=== PATIENT | female | born 1950 | race Hispanic/Latino ===

== ENCOUNTER 2020-01-05 09:48 | Observation (INO) | payer OTHER ==
[2019-12-30 14:11] LABS: Basophils % 1.3 % (0-1.3); Hematocrit 42.4 % (36.0-45.0); Lymphocytes % 37.8 % (15.3-44.8); MPV 9.9 fL (7.6-11.3); RBC Red Blood Cell Count 4.75 M/uL (3.86-4.86)
[~2020-01-05 09:48] MED LIST: CEFOXITIN/SWI 1gm 1 GM/10 ML SYR IVP SCH
[2020-01-05] MEDS ORDERED: Ringers Lactate 1,000 ML IV ONE ×2 (10:19→12:41)
[2020-01-05] MEDS: CEFOXITIN/SWI 1gm 1 GM/10 ML SYR ONE ×2 (10:39→11:45)
[2020-01-05] MEDS: BUPIVACAINE 0.5% Inj,MDV 50 mL VIAL ONE ×2 (10:49→12:00)
[2020-01-05] MEDS ORDERED: LIDOCAINE 2% MPF 5 ML VIAL ONE ×2 (10:50→11:02)
[2020-01-05] MEDS ORDERED: dexAMETHasone 10 MG/ML VIAL ONE ×2 (10:50→11:02)
[2020-01-05] MEDS ORDERED: ROCURONIUM 50 MG/5 ML VIAL IV ONE ×3 (10:50→11:02)
[2020-01-05] MEDS ORDERED: FENTANYL CITR 100 MCG/2 ML ONE ×2 (10:50→11:01)
[2020-01-05] MEDS ORDERED: propofoL 200 MG/20 ML VIAL IV ONE ×2 (10:50→11:01)
[2020-01-05] MEDS ORDERED: ONDANSETRON 4 MG/2 ML VIAL ONE ×3 (10:53→13:34)
--- OUTSIDE RECORDS SUMMARY | 2020-01-05 10:59 | XMS REPORT | Continuity of Care Document ---
:1950 Author Organization [facility] t Address [address] [place] [address] Care Team Providers Name Role Phone Nathaniel SCHMIDT, A Attending Clinician Problems This patient has no known problems. Allergies, Adverse Reactions, Alerts This patient has no known allergies or adverse reactions. Medications This patient has no known medications. Procedures This patient has no known procedures. Encounters Start End Encounter Admission Attending Care Care Encounter Source Date/Time Date/Time Type Type Clinicians Facility Department ID 2019-12-22 2019-12-22 Office OLIVIER Armstrong [id number] 14:29:04 15:05:25 Visit Krysta Howard [id number] [place] [id number] [place] [id number] [address] Results This patient has no known results.
--- OUTSIDE RECORDS SUMMARY | 2020-01-05 10:59 | XMS REPORT | Summary of Care ---
:1950 Author Organization [facility] Address [address] [place] [address] Care Team Providers Name Role Phone José Armstrong MD Primary Care Provider Reason for Visit Reason Comments Refill Request Encounter Details Date Type Department Care Team Description 11/12/2019 Refill [facility] and Ed[place]ancek Luis singh MD Refill Request Adult Primary Care- [address] [facility] [address] [place] [address] [address] [place] [address] [phone] Allergies No Known Allergiesdocumented as of this encounter (statuses as of 11/13/2019) Medications Medication Sig Dispensed Refills Start Date End Date Status albuterol 2.5 mg /3 Inhale 3 mL 120 Vial 11 01/09/2018 Active mL (0.083 %) every 6 (six) nebulizer hours as solutionIndications: needed for Shortness of breath Wheezing or Shortness of Breath. albuterol 90 Inhale 2 Puffs 8.5 g 11 01/09/2018 A ctive mcg/actuation every 6 (six) inhalerIndications: hours as Shortness of breath needed for Wheezing or Shortness of Breath. ibuprofen 600 mg Take 1 tablet 30 tablet 0 10/04/2018 Active tabletIndications: by mouth every Pelvic organ 6 (six) hours prolapse as needed for quantification stage Pain (scale 2 cystocele 4-6). traMADol 50 mg Take 1 tablet 20 tablet 0 10/04/2018 Active tabletIndications: by mouth every Pelvic organ 6 (six) hours prolapse as needed for quantification stage Pain (scale 2 cystocele 7-10). omeprazole 20 mg TAKE 1 CAPSULE 30 capsule 5 11/15/2018 Active capsule BY MOUTH ONCE DAILY lisinopril 20 mg Take 1 tablet 90 tablet 3 08/15/2019 Active tabletIndications: by mouth Uncontrolled daily. hypertension amLODIPine 10 mg Take 1 tablet 90 tablet 3 08/15/2019 Active tabletIndications: by mouth Uncontrolled daily. hypertension doxycycline hyclate Take 1 tablet 20 tablet 0 09/30/2019 Active 100 mg by mouth 2 tabletIndications: (two) times Cellulitis of right daily. lower extremity FUROSEMIDE 20 mg Take 1 tablet 30 tablet 0 11/13/2019 Active tabletIndications: by mouth once Edema, lower daily extremity METHIMAZOLE 10 mg TAKE 1 TABLET 90 tablet 0 11/13/2019 Active tabletIndications: BY MOUTH THREE Hyperthyroidism TIMES DAILY METHIMAZOLE 10 mg TAKE 1 TABLET 90 tablet 0 09/05/2019 02 Discontinued tabletIndications: BY MOUTH THREE 0 Hyperthyroidism TIMES DAILY furosemide 20 mg Take 1 tablet 30 tablet 0 09/30/2019 11/13/19 2 Discontinued tabletIndications: by mouth 0 Edema, lower daily. extremity documented as of this encounter (statuses as of 11/13/2019) Active Problems Problem Noted Date Cellulitis of right lower extremity 08/15/2019 Edema, lower extremity 08/15/2019 S/P hysterectomy 10/02/2018 Mixed stress and urge urinary incontinence 08/22/2018 Overview: Added automatically from request for ruth joel [id number] Uterovaginal prolapse, complete 08/22/2018 Overview: Added automatically from request for ruth wisam [id number] Helicobacter pylori (H. pylori) infection 07/25/2018 Obesity (BMI 30-39.9) 07/17/2018 Atrophy of vagina 06/27/2018 Mammogram abnormal 06/27/2018 Overview: Cat 3 Calculus of gallbladder without cholecystitis without obstruction 03/21/2018 Diverticulosis of large intestine without hemorrhage 0 03/21/2018 Family history of stomach cancer 03/21/2018 Colon cancer screening 03/21/2018 Overview: Added automatically from request for ruth joel [id number] Pelvic organ prolapse quantification stage 3 rectocele 01/16/2018 Pelvic organ prolapse quantification stage 2 cystocele 01/16/2018 Thyroid nodule Stroke Overview: due to stress per pt, had at 34 years ol d Recurrent UTI Overview: prolapsed bladder Hypothyroidism (acquired) Uncontrolled hypertension Hearing loss GERD (gastroesophageal reflux disease) documented as of this encounter (statuses as of 11/13/2019) Immunizations Name Administration Dates Next Due Pneumococcal 13 Conjugate, PCV13 (Prevnar 13) 01/09/2018 documented as of this encounter Social History Tobacco Use Types Packs/Day Years Used Date Former Smoker Cigarettes Quit: 2008 Smokeless Tobacco: Never Used Comments: vapes- contains no nicotine (o nly every once & a while) Alcohol Use Drinks/Week oz/Week Comments No Sex Assigned at Date Recorded Not on file documented as of this encounter Last Filed Vital Signs Not on filedocumented in this encounter Plan of Treatment Health Maintenance Due Date Last Done Comments DTaP,Tdap,and Td Vaccines (1 - Tdap) 12/20/1971 COLON CANCER SCREENING ANNUAL FIT/FOBT 2002 COLON CANCER SCREENING FIT DNA EVERY 3 YEARS 2002 COLON CANCER SCREENING SIGMOIDOSCOPY EVERY 5 YEARS 2002 Zoster Recombinant Vaccine (SHINGRIX) (1 of 2) 2002 Medicare Wellness Visit 2017 Osteoporosis Screening 2017 PNEUMOCOCCAL VACCINES 65+ (2 of 2 - PPSV23) 01/09/201906/2017 Breast Cancer Screening (MAMMOGRAM) 01/10/2019 01/10/2018 INFLUENZA VACCINE (#1) 2019 Depression Screening 08/14/2020 08/15/2019 COLONOSCOPY 04/30/2028 04/30/2018 Colorectal Cancer Screening 04/30/2028 HEPATITIS C (HCV) SCREEN Completed 01/21/2018 LUNG CANCER SCREEN: Recommended for age 55-80 with Discontinued 08/02/2018 30 + pack year history documented as of this encounter Implants Implanted Type Area Network Liaison Device Shelf Model / Identifier Expiration Serial / Date Lot Prolene Soft Polypropylene Mesh, Nonabso rbable Synthetic Surgical Mesh [id number] - Ssplmi MESH N/A: Ethicon 04/05/2023 SPMLI / Implanted: Qty: 1 on 10/02/2018 by Riley Manriquez MD at [facility] SPLMI / [id number] documented as of this encounter Results Not on filedocumented in this encounter Visit Diagnoses Diagnosis Edema, lower extremity Hyperthyroidism Thyrotoxicosis without mention of goiter or other cause, without mention of thyrotoxic crisis or storm documented in this encounter Additional Health Concerns Infection Onset Date Last Indicated Resolved Time Contact - ESBL 09/15/2018 09/15/2018 documented as of this encounter Insurance Payer Benefit Plan / Subscriber ID Effective Phone Address T e Group Dates [facility] [id number] 2018-[facility] - HEALTHCARE ent Adv HM O MANAGED DUAL COMPLETE MEDICARE [facility]MO [facility] MEDICAID OF [id number] 2017-Pre [phone] [place] ca[address] [place] [phone] [place] [address] documented as of this encounter
[2020-01-05] MEDS ORDERED: MIDAZOLAM HCL 2 MG/2 ML INJ ONE ×2 (11:00→11:06)
--- OUTSIDE RECORDS SUMMARY | 2020-01-05 11:00 | XMS REPORT | Summary of Care ---
:1950 Author Organization [facility] Address [address] [place] [address] Care Team Providers Name Role Phone José Armstrong MD Primary Care Provider Reason for Visit Reason Comments Assessment Encounter Details Date Type Department Care Team Description 12/22/2019 Telephone [facility] Pediatric and Sarah Armstrong, Assessment Adult Primary Care- [address] [place] [address] [address] [place] [address] [place] [address] [phone] Allergies No Known Allergiesdocumented as of this encounter (statuses as of 12/22/2019) Medications Medication Sig Dispensed Refills Start Date End Date Status albuterol 2.5 mg /3 mL Inhale 3 mL 120 Vial 11 01/09/2018 Active (0.083 %) nebulizer every 6 (six) solutionIndications: hours as needed Shortness of breath for Wheezing or Shortness of Breath. albuterol 90 Inhale 2 Puffs 8.5 g 11 01/09/2018 A ctive mcg/actuation every 6 (six) inhalerIndications: hours as needed Shortness of breath for Wheezing or Shortness of Breath. ibuprofen 600 mg Take 1 tablet by 30 tablet 0 10/04/2018 Active tabletIndications: mouth every 6 Pelvic organ prolapse (six) hours as quantification stage 2 needed for Pain cystocele (scale 4-6). traMADol 50 mg Take 1 tablet by 20 tablet 0 10/04/2018 Active tabletIndications: mouth every 6 Pelvic organ prolapse (six) hours as quantification stage 2 needed for Pain cystocele (scale 7-10). omeprazole 20 mg TAKE 1 CAPSULE 30 capsule 5 11/15/2018 Active capsule BY MOUTH ONCE DAILY lisinopril 20 mg Take 1 tablet by 90 tablet 3 08/15/2019 Active tabletIndications: mouth daily. Uncontrolled hypertension amLODIPine 10 mg Take 1 tablet by 90 tablet 3 08/15/2019 Active tabletIndications: mouth daily. Uncontrolled hypertension doxycycline hyclate 100 Take 1 tablet by 20 tablet 0 0 Active mg tabletIndications: mouth 2 (two) Cellulitis of right times daily. lower extremity FUROSEMIDE 20 mg Take 1 tablet by 30 tablet 0 11/13/2019 Active tabletIndications: mouth once daily Edema, lower extremity METHIMAZOLE 10 mg TAKE 1 TABLET BY 90 tablet 0 11/13/2019 Active tabletIndications: MOUTH THREE Hyperthyroidism TIMES DAILY acetaminophen-codeine Take 1 tablet by 30 tablet 0 12/18/2019 Active (TYLENOL-CODEINE #3) mouth every 4 300-30 mg (four) hours as tabletIndications: needed for Pain acute pain (scale 1-3). Indications: acute pain documented as of this encounter (statuses as of 12/22/2019) Active Problems Problem Noted Date Cellulitis of right lower extremity 08/15/2019 Edema, lower extremity 08/15/2019 S/P hysterectomy 10/02/2018 Mixed stress and urge urinary incontinence 08/22/2018 Overview: Added automatically from request for ruth wisam [id number] Uterovaginal prolapse, complete 08/22/2018 Overview: Added automatically from request for ruth wisam [id number] Helicobacter pylori (H. pylori) infection 07/25/2018 Obesity (BMI 30-39.9) 07/17/2018 Atrophy of vagina 06/27/2018 Mammogram abnormal 06/27/2018 Overview: Cat 3 Calculus of gallbladder without cholecystitis without obstruction 03/21/2018 Diverticulosis of large intestine without hemorrhage 0 03/21/2018 Family history of stomach cancer 03/21/2018 Colon cancer screening 03/21/2018 Overview: Added automatically from request for ruth joel [id number] Pelvic organ prolapse quantification stage 3 rectocele 01/16/2018 Pelvic organ prolapse quantification stage 2 cystocele 01/16/2018 Thyroid nodule Stroke Overview: due to stress per pt, had at 34 years ol d Recurrent UTI Overview: prolapsed bladder Hypothyroidism (acquired) Uncontrolled hypertension Hearing loss GERD (gastroesophageal reflux disease) documented as of this encounter (statuses as of 12/22/2019) Immunizations Name Administration Dates Next Due Pneumococcal 13 Conjugate, PCV13 (Prevnar 13) 01/09/2018 documented as of this encounter Social History Tobacco Use Types Packs/Day Years Used Date Former Smoker Cigarettes Quit: 2008 Smokeless Tobacco: Never Used Comments: vapes- contains no nicotine (o nly every once & a while) Alcohol Use Drinks/Week oz/Week Comments No Sex Assigned at Date Recorded Not on file COVID-19 Exposure Response Date Recorded In the last month, have you been in contact with Yes 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 documented as of this encounter Last Filed Vital Signs Not on filedocumented in this encounter Miscellaneous Notes Telephone Encounter - Kelly Hylton RN - 12/22/2019 11:04 AM CSTPatient scheduled for appointment today. elephone Encounter - Meri Valdivia - 12/22/2019 9:57 AM CSTPatient states she was in the emerg room for a gall stone and would like to see her doctor. Patient states she don't know the next step but need help to figure out what she has to do. Please advise documented in this encounter Plan of Treatment Date Type Specialty Care Team Description 12/22/2019 Office Visit Internal Medicine Jenniffer Armstrong MD [address] [place] [address] [phone] Health Maintenance Due Date Last Done Comments DTaP,Tdap,and Td Vaccines (1 - Tdap) 12/20/1971 COLON CANCER SCREENING ANNUAL FIT/FOBT 2002 COLON CANCER SCREENING FIT DNA EVERY 3 YEARS 2002 COLON CANCER SCREENING SIGMOIDOSCOPY EVERY 5 YEARS 2002 Zoster Recombinant Vaccine (SHINGRIX) (1 of 2) 2002 Medicare Wellness Visit 2017 Osteoporosis Screening 2017 PNEUMOCOCCAL VACCINES 65+ (2 of 2 - PPSV23) 01/09/2019 12/0 06/2017 Breast Cancer Screening (MAMMOGRAM) 01/10/2019 01/10/2018 INFLUENZA VACCINE (#1) 2019 Depression Screening 08/14/2020 08/15/2019 COLONOSCOPY 04/30/2028 04/30/2018 Colorectal Cancer Screening 04/30/2028 HEPATITIS C (HCV) SCREEN Completed 01/21/2018 LUNG CANCER SCREEN: Recommended for age 55-80 with Discontinued 08/02/2018 30 + pack year history documented as of this encounter Implants Implanted Type Area Hydrogen Treater Device Shelf Model / Identifier Expiration Serial / Date Lot Prolene Soft Polypropylene Mesh, Nonabso rbable Synthetic Surgical Mesh [id number] - Ssplmi MESH N/A: Ethicon 04/05/2023 SPMLI / Implanted: Qty: 1 on 10/02/2018 by Riley Manriquez MD at [facility] SPLMI / [id number] documented as of this encounter Results Not on filedocumented in this encounter Insurance Payer Benefit Plan / Subscriber ID Effective Phone Address T e Group Dates [facility] [id number] 2018-Pres [facility] - HEALTHCARE ent Adv HM O MANAGED DUAL COMPLETE MEDICARE HMO [facility] [place] MEDICAID OF [id number] 2017-Pre [phone] Medi caid [place] sent [phone] [place] [address] documented as of this encounter
--- OUTSIDE RECORDS SUMMARY | 2020-01-05 11:00 | XMS REPORT | Summary of Care ---
:1950 Author Organization [facility] - Health Address [address] [place], [place] [id number] Care Team Providers Name Role Phone José Armstrong MD Primary Care Provider Reason for Referral (Routine) Status Reason Specialty Diagnoses / Referred By Contact Refe rred To Procedures Contact New Request RUTH-SURGERY Diagnoses Epigastric pain Briseyda Maxwell, Procedures Discharge Follow-Up: Specialty Service RUTH-SURGERY; 1 Week DO [address] [place], [place] [address] Phone: MRI/CAT Scan (STAT) Status Reason Specialty Diagnoses / Referred By Referred To Procedures Contact Contact New Request Diagnostic Diagnoses Epigastric pain Briseyda Maxwell Radiology Procedures CT ABDOMEN PELVIS W CONTRAST J, DO [address] [place] [phone] Radiology Services (STAT) Status Reason Specialty Diagnoses / Referred By Referred To Procedures Contact Contact New Request Diagnostic Diagnoses Epigastric pain Briseyda Maxwell Radiology Procedures US GALL BLADDER US ABDOMEN COMPLETE J, DO [address] [place] [address] Reason for Visit Reason Comments Shortness of Breath Abdominal Pain Encounter Details Date Type Department Care Team Description 12/17/2019 - Emergency ADC-Emergency Briseyda Maxwell, Epigast tomeka pain (Primary Dx); 12/18/2019 Department DO Biliary colic [address] [place] [id number] [place], [place] [id number] [phone] Allergies No Known Allergiesdocumented as of this encounter (statuses as of 12/18/2019) Medications Medication Sig Dispensed Refills Start Date [...] as of this encounter (statuses as of 12/18/2019) Active Problems Problem Noted Date Cellulitis of right lower extremity 08/15/2019 Edema, lower extremity 08/15/2019 S/P hysterectomy 10/02/2018 Mixed stress and urge urinary incontinence 08/22/2018 Overview: Added automatically from request for ruth joel [id number] Uterovaginal prolapse, complete 08/22/2018 Overview: Added automatically from request for ruth joel [id number] Helicobacter pylori (H. pylori) infection 07/25/2018 Obesity (BMI 30-39.9) 07/17/2018 Atrophy of vagina 06/27/2018 Mammogram abnormal 06/27/2018 Overview: Cat 3 Calculus of gallbladder without cholecystitis without obstruction 03/21/2018 Diverticulosis of large intestine without hemorrhage 0 03/21/2018 Family history of stomach cancer 03/21/2018 Colon cancer screening 03/21/2018 Overview: Added automatically from request for ruth joel [id number] Pelvic organ prolapse quantification stage 3 rectocele 01/16/2018 Pelvic organ prolapse quantification stage 2 cystocele 01/16/2018 Thyroid nodule Stroke Overview: due to stress per pt, had at 34 years ol d Recurrent UTI Overview: prolapsed bladder Hypothyroidism (acquired) Uncontrolled hypertension Hearing loss GERD (gastroesophageal reflux disease) documented as of this encounter (statuses as of 12/18/2019) Immunizations Name Administration Dates Next Due Pneumococcal [...] in contact with Yes 12/17/2019 9:25 PM [employer] someone who was confirmed or suspected to have Coronavirus / COVID-19? documented as of this encounter Last Filed Vital Signs Vital Sign Reading Time Taken Comments Blood Pressure 105/62 12/18/2019 12:47 AM [employer] Pulse 66 12/18/2019 12:47 AM [employer] Temperature 35.8 C (96.4 F) 12/17/2019 9:30 PM [employer] Respiratory Rate 18 12/18/2019 12:47 AM [employer] Oxygen Saturation 97% 12/18/2019 12:47 AM [employer] Inhaled Oxygen Concentration - - Weight 113.4 kg (250 lb) 12/17/2019 9:30 PM [employer] Height 170.2 cm (5' 7") 12/17/2019 9:30 PM [employer] Body Mass Index 39.16 12/17/2019 9:30 PM [employer] documented in this encounter Discharge Instructions Briseyda Pleitez DO - 12/18/2019DIAGNOSIS 1. Biliary Colic 2. Abdominal Pain NO LIFE-THREATENING FINDINGS ON TODAY'S EXAM. PROCEDURES IN THE ER TODAY: Blood work Urine test Abdominal Ultrasound CT abdomen/pelvis MEDICATIONS ADMINISTERED IN THE ER TODAY: Morphine Zofran YOUR PRESCRIPTIONS AND [id number] MEDICATION RECOMMENDATIONS: Tylenol with codeine by mouth every 4 hours as needed for pain. SPECIAL CARE INSTRUCTIONS: Please avoid fatty and fried foods. FOLLOW-UP RECOMMENDATIONS: RECOMMEND FOLLOW-UP WITH A PRIMARY CARE PROVIDER OR SPECIALIST IN 2-5 DAYS, ESPECIALLY IF NO IMPROVEMENT IN SYMPTOMS. TO FOLLOW-UP WITHIN THE [facility], TRY THESE OPTIONS (CLINIC APPOINTMENTS AVAILABLE ON [id number] BASIS): 1. SCHEDULE AN APPOINTMENT ONLINE AT WWW[facility] 2. OR CALL THE [facility] ACCESS CENTER AT OR 3. OR CALL YOUR [facility] PHYSICIAN'S OFFICE DIRECTLY IF YOU ARE ALREADY AN ESTABLISHED [facility] PATIENT. OR, YOU MAY FOLLOW-UP WITH A PROVIDER OF YOUR CHOICE, SUCH : 1. A PHYSICIAN OF YOUR CHOICE 2. [facility], . LOCATIONS IN [facility] 3. [facility], [address] [place] [address]; [phone] RETURN TO ER FOR WORSENING OF SYMPTOMS. AttachmentsThe following attachments cannot be sent through Care Everywhere. Gallstones with Biliary Colic (Italian)documented in this encounter ED Notes Beatris Lindsay RN - 12/17/2019 9:26 PM CSTCC: Pt presents to ER via POA with complaints of sudden Abdominal pain and SOB that woke her up at 18:00, she vomited shortly afterward. Pt stated she has been fine all day until this episode. Pt was COVID Positive on 12/04. Pt stated she went to the dentist today and started taking amoxicillin for a bad tooth. PMHx: COPD, HTN, Thyroid dysfunction PSH: Bladder and Colon lift, hysterectomy MEDS: See Hx LMP: Hysterectomy Tetanus: UTD Awake, alert, oriented, resp reg unlabored, skin warm, color appropriate for race, moves all ext without difficulty, Unable to ambulate at this time. Appears in moderate distress [employer] Briseyda Maxwell, - 12/17/2019 9:21 PM CST [facility] Emergency Department Note Patient Name: Beata Azevedo Date of : 1950 68 year old female Treatment Room: [place] [address] Primary Care Physician: Krysta Armstrong Patient Escorted by: Family [5] Mode of Arrival: Personal means [1] EMS Treatment Prior to ED Arrival: REAL ESTATE SPECIALIST treatment: Medication (comment) REAL ESTATE SPECIALIST treatment comments: amoxcillian Travel and Exposure Screening: Symptoms Does patient have any of these symptoms?: (not recorded) Exposure Screening Has patient had contact with someone with a communicable disease in the last month?: (not recorded) Diseases exposed to:: (not recorded) Is Patient ?: (not recorded) Exposure Date: (not recorded) Chief Complaint: Chief Complaint Patient presents with Shortness of Breath Abdominal Pain History of Present Illness: Patient presents for eval for RUQ/epigastric pain that started around 1900 this evening. It woke her up from sleep. She laid down at 1800. Had a grilled cheese around 1500. Also with n/v. No meds for sx. Denies these sx in the past. No dysuria. No diarrhea. No similar sx in family/freinds. Has h/o tubal ligation x 3 in the past. Also has h/o htn and thyroid disease. Here for eval. Past Medical History/Immunizations: Past Medical History: Diagnosis Date DVT (deep venous thrombosis) right leg at 34 years old. GERD (gastroesophageal reflux disease) Hearing loss HTN (hypertension), benign Hypothyroidism (acquired) Recurrent UTI prolapsed bladder Stroke due to stress per pt, had at 34 years old Thyroid nodule Tetanus received in last 5 years: Yes Childhood immunizations: Up-to-date Allergies: No Known Allergies Past Social History: Tobacco Use Former Smoker; Quit 2008; Smoked: Cigarettes. Smokeless Tobacco: Never used smokeless tobacco. Comments: vapes- contains no nicotine (only every once & a while) Alcohol Use No. Drug Use No. Past Surgical History: Past Surgical History: Procedure Laterality Date BREAST BIOPSY Right 07/25/2018 COLONOSCOPY N/A 04/30/2018 Surgeon: Jason Moyer MD; Location: [facility] CYSTOSCOPY N/A 10/02/2018 Surgeon: Riley Manriquez; Location[facility] ESOPHAGOGASTRODUODENOSCOPY N/A 04/30/2018 Surgeon: Jason Moyer MD; Location: [facility] LAPAROSCOPIC ROBOTIC ASSISTED BLADDER SUSPENSION N/A 10/02/2018 Surgeon: Riley Manriquez; Location: [facility] LAPAROSCOPIC ROBOTIC ASSISTED SACROCOLPOPEXY N/A 10/02/2018 Surgeon: Riley Manriquez; Location[facility] LAPAROSCOPIC ROBOTIC ASSISTED SALPINGO-OOPHORECTOMY Bilateral 10/02/2018 Surgeon: Riley Manriquez; Location: [facility] LAPAROSCOPIC ROBOTIC ASSISTED VAGINAL HYSTERECTOMY N/A 10/02/2018 Surgeon: Riley Manriquez; Location: [facility] OTHER Bilateral venous stripping both legs for varicose veins TONSILLECTOMY 37 years old TUBAL LIGATION twice, 1976, 1978. Review of Systems: Review of Systems Constitutional: Negative for chills and fever. Respiratory: Negative for shortness of breath. Cardiovascular: Negative for chest pain. Gastrointestinal: Positive for abdominal pain, nausea and vomiting. Negative for diarrhea. Musculoskeletal: Negative for arthralgias, neck pain and neck stiffness. Skin: Negative for wound. Neurological: Negative for dizziness. Psychiatric/Behavioral: Negative for agitation. Endocrine: Negative for goiter. Physical Exam: ED Triage Vitals [12/17/19 2130] Weight 113.4 kg (250 lb) Actual or estimated Estimated by patient/family report Height 1.702 m (5' 7") BP (!) 145/61 Pulse 73 Resp 20 Temp 35.8 C (96.4 F) Temp source Oral SpO2 99 % Measured on Room air Physical Exam Vitals signs and nursing note reviewed. Constitutional: Appearance: Normal appearance. HENT: Head: Normocephalic and atraumatic. Cardiovascular: Rate and Rhythm: Normal rate. Pulses: Normal pulses. Pulmonary: Effort: Pulmonary effort is normal. No respiratory distress. Abdominal: Palpations: Abdomen is soft. There is no mass. Tenderness: There is abdominal tenderness. There is no rebound. Skin: General: Skin is warm and dry. Neurological: Mental Status: She is alert. Radiology: Hospital Encounter on 12/17/19 US GALL BLADDER Narrative US GALL BLADDER HISTORY: 68 years-old; Female; RUQ pain, concern for acute eliezer COMPARISON: Abdominopelvic CT 02/28/2018 FINDINGS: LIVER: The liver is normal in size and measures 15.4 cm. Normal echotexture, echogenicity, and contour No focal hepatic lesion. Hepatopetal flow within the main portal vein. GALLBLADDER: A large stone is noted in the neck of the gallbladder measuring approximately 3.0 cm with no wall thickening (0.2 cm), gallbladder distention, or pericholecystic fluid. Sonographic Sanderson's sign cannot be reliably assessed due to administration of pain medication. The common bile duct measures 0.5 cm. PANCREAS: Incompletely visualized due to overlying bowel gas. RIGHT KIDNEY: The partially visualized right kidney is unremarkable. Impression Cholelithiasis with no definite sonographic evidence of cholecystitis. This finding is similar to that of previous abdominopelvic CT on February 2018. Preliminary Report Dictated by Resident: Nell Bernabe CT ABDOMEN PELVIS W CONTRAST Narrative CT ABDOMEN PELVIS W CONTRAST HISTORY: 68 years-old; Female; Abd pain, acute, generalized COMPARISON: 02/28/2018 TECHNIQUE AND FINDINGS: Contiguous axial imaging from the level of the lung bases through the pubic symphysis was performed after the uncomplicated administration of 120 cc of intravenous Omnipaque contrast. Coronal and sagittal reconstructions were obtained. Auto mA and/or iterative reconstruction were used to reduce radiation dose. FINDINGS: LOWER THORAX: The lung bases are clear. No cardiomegaly. LIVER: No focal hepatic lesions. Normal contour. GALLBLADDER AND BILIARY TREE: A 3.0 cm stone is noted near the neck of the gallbladder with no wall thickening or pericholecystic fluid collection, unchanged from prior study. SPLEEN: Unremarkable. PANCREAS: No ductal dilation or masses. ADRENAL GLANDS: Right adrenal lesions measuring 1.7 cm in the medial limb and 1.5 cm in the lateral limb, indeterminate and unchanged from prior study. The left adrenal gland is unremarkable. KIDNEYS: Exophytic renal simple cyst measuring 1.3 cm along the posterior superior pole of left kidney. No hydronephrosis, stones, or masses. Homogeneous and symmetrical enhancement. PERITONEUM AND RETROPERITONEUM: No free air or fluid collection. LYMPH NODES: No intra-abdominal or pelvic lymph node enlargement. GI TRACT: No dilation or bowel wall thickening. Appendix is normal (2:96). A few sigmoid diverticula noted with no CT evidence of diverticulitis. PELVIS/BLADDER: Bladder is distended with no wall thickening. The uterus is absent. VESSELS: Unremarkable. BONES AND SOFT TISSUES: No suspicious lytic or sclerotic bony lesions. Lines/Tubes/Devices/Hardware: None Impression No acute abdominopelvic CT findings to account for patient's symptoms. Sigmoid diverticulosis without diverticulitis. Cholelithiasis without CT evidence of cholecystitis. Preliminary Report Dictated by Resident: Nell Bernabe Lab Results (24h): Recent Results (from the past 24 hour(s)) Urinalysis Collection Time: 12/17/19 9:53 PM Result Value Ref Range APPEARANCE Clear Clear COLOR Yellow Yellow PH 8.0 4.8 - 8.0 SP GRAVITY 1.016 1.003 - 1.030 GLU U QUAL Normal Normal BLOOD Negative Negative KETONES Negative Negative PROTEIN Negative Negative UROBILIN 4.0 mg/dL (A) Normal BILIRUBIN Negative Negative NITRITE Negative Negative LEUK ROBERTA Negative Negative RBC/HPF <1 0 - 3 HPF WBC/HPF 1 0 - 5 HPF BACTERIA Negative Negative MUCOUS Slight (A) Negative LPF SQ EPITH 2 HPF CBC with Differential Collection Time: 12/17/19 9:53 PM Result Value Ref Range WBC 11.26 (H) 4.30 - 11.10 10*3/L RBC 4.69 3.93 - 5.25 10*6/L HGB 14.0 11.6 - 15.0 g/dL HCT 41.7 35.7 - 45.2 % MCV 88.9 80.6 - 95.5 fL MCH 29.9 25.9 - 32.8 pg MCHC 33.6 31.6 - 35.1 g/dL RDW-SD 41.4 39.0 - 49.9 fL RDW-CV 12.7 12.0 - 15.5 % PLT 279 166 - 358 10*3/L MPV 11.2 9.5 - 12.9 fL NRBC/100 WBC 0.0 0.0 - 10.0 /100 WBCs NRBC x10^3 <0.01 10*3/L GRAN MAT (NEUT) % 49.3 % IMM GRAN % 1.00 % LYMPH % 41.0 % MONO % 6.3 % EOS % 1.6 % BASO % 0.8 % GRAN MAT x10^3(ANC) 5.55 1.88 - 7.09 10*3/uL IMM GRAN x10^3 0.11 (H) 0.00 - 0.06 10*3/uL LYMPH x10^3 4.62 (H) 1.32 - 3.29 10*3/uL MONO x10^3 0.71 0.33 - 0.92 10*3/uL EOS x10^3 0.18 0.03 - 0.39 10*3/uL BASO x10^3 0.09 (H) 0.01 - 0.07 10*3/uL REACT LYMPHS Rare Basic Metabolic Panel (NA, K, CL, CO2, GLUCOSE, BUN, CREATININE, CA) Collection Time: 12/17/19 9:53 PM Result Value Ref Range NA 139 135 - 145 mmol/L K 3.2 (L) 3.5 - 5.0 mmol/L CL 99 98 - 108 mmol/L CO2 TOTAL 31 23 - 31 mmol/L AGAP 9 2 - 16 BUN 16 7 - 23 mg/dL GLUCOSE 113 (H) 70 - 110 mg/dL CREATININE 0.71 0.50 - 1.04 mg/dL CALCIUM 9.8 8.6 - 10.6 mg/dL eGFR Calculation (Non-) 82.4 mL/min/1.73m2 eGFR Calculation () 99.8 mL/min/1.73m2 Hepatic Function Panel (ALB, T.PRO, BILI T, BU/BC, ALT, AST, ALK PHOS) Collection Time: 12/17/19 9:53 PM Result Value Ref Range TOTAL BILI 0.8 0.1 - 1.1 mg/dL BILI UNCON 0.5 0.1 - 1.1 mg/dL BILI CONJ 0.0 0.0 - 0.3 mg/dL T PROTEIN 7.6 6.3 - 8.2 g/dL ALBUMIN 4.3 3.5 - 5.0 g/dL ALK PHOS 83 34 - 122 U/L ALTv 38 (H) 5 - 35 U/L AST(SGOT) 39 13 - 40 U/L Lipase Serum Collection Time: 12/17/19 9:53 PM Result Value Ref Range LIPASE 161 0 - 220 U/L Troponin I Collection Time: 12/17/19 9:53 PM Result Value Ref Range TROPONIN I <0.012 <=0.034 ng/mL Lactic Acid Whole Blood Collection Time: 12/17/19 9:53 PM Result Value Ref Range LACTIC ACID 1.60 mmol/L EKG: Nsr, no stemi, QTc 445, rate 67 Orders and Treatments: Orders Placed This Encounter Procedures US GALL BLADDER CT ABDOMEN PELVIS W CONTRAST Urinalysis CBC with Differential Basic Metabolic Panel (NA, K, CL, CO2, GLUCOSE, BUN, CREATININE, CA) Hepatic Function Panel (ALB, T.PRO, BILI T, BU/BC, ALT, AST, ALK PHOS) Lipase Serum Troponin I Lactic Acid Whole Blood Lactic Acid Whole Blood Orders Placed This Encounter Medications morpHINE injection 4 mg ondansetron (ZOFRAN (PF)) injection 4 mg iohexol (OMNIPAQUE 350 BULK-150 mL) injection 120 mL acetaminophen-codeine (TYLENOL-CODEINE #3) 300-30 mg tablet ED COURSE patient presents for eval for abdominal pain that started around 1900. Had a grilled cheese [id number]. Also with n/v. No diarrhea. No dysuria. No meds for sx. Has h/o tubal ligation x 3 in the past. No fevers. VSS here in the EC. Abdomen soft with tenderness in RUQ/epigatric area. Concern for GB disease. EKG is unremarkable. Will give pain meds. Will check labs/urine. Will obtain RUQ US. Final dispo pending. 2310 - labs ok. RUQ US shows GB stones but no itis. Patient states she is feeling better. Still with tenderness to RUQ. Will obtain CT a/p. 0030 - CT a/p shows no acute findings. Patient feeling better. Given po challenge and tolerated by mouth without difficulty. Will discharge home in stable condition Will need general surgery f/u. Avoid fried/fatty foods. T3 prn. MDM: Coding Scoring Tools: No data recorded Diagnosis/Impression: ICD-10-CM ICD-9-CM 1. Epigastric pain R10.13 789.06 2. Biliary colic K80.50 574.20 Disposition/Condition: ED Disposition ED Disposition Condition Comment Disch - Home Stable Discharge Medications: Patient's Medications START taking these medications ACETAMINOPHEN-CODEINE (TYLENOL-CODEINE #3) 300-30 MG TABLET Take 1 tablet by mouth every 4 (four) hours as needed for Pain (scale 1-3). Indications: acute pain CONTINUE taking these medications which have NOT CHANGED ALBUTEROL 2.5 MG /3 ML (0.083 %) NEBULIZER SOLUTION Inhale 3 mL every 6 (six) hours as needed for Wheezing or Shortness of Breath. ALBUTEROL 90 MCG/ACTUATION INHALER Inhale 2 Puffs every 6 (six) hours as needed for Wheezing or Shortness of Breath. AMLODIPINE 10 MG TABLET Take 1 tablet by mouth daily. DOXYCYCLINE HYCLATE 100 MG TABLET Take 1 tablet by mouth 2 (two) times daily. FUROSEMIDE 20 MG TABLET Take 1 tablet by mouth once daily IBUPROFEN 600 MG TABLET Take 1 tablet by mouth every 6 (six) hours as needed for Pain (scale 4-6). LISINOPRIL 20 MG TABLET Take 1 tablet by mouth daily. METHIMAZOLE 10 MG TABLET TAKE 1 TABLET BY MOUTH THREE TIMES DAILY OMEPRAZOLE 20 MG CAPSULE TAKE 1 CAPSULE BY MOUTH ONCE DAILY TRAMADOL 50 MG TABLET Take 1 tablet by mouth every 6 (six) hours as needed for Pain (scale 7-10). START taking Modified Medications as Prescribed No medications on file STOP taking these medications No medications on file Follow-up: Contact information for follow-up Krysta Armstrong MD Specialty: IM-GERIATRIC MEDICINE Relationship: PCP - [address] Olson [address] [place] [phone] Electronically signed by: Briseyda Maxwell DO 12/17/2019 9:50 PM [employer] documented in this encounter Miscellaneous Notes ED Nurse Note - Marti De RN - 12/18/2019 12:49 AM [employer] Patient and given discharge instruction, patient verbralized understanding and signature obtained, patient denies any other concerns. Patient taken to care via wheelchair. D Nurse Note - Marti De RN - 12/18/2019 12:29 AM CSTPatient given fluid for PO challenge, will continue to monitor. D Nurse Note - Rhys Willson RN - 12/17/2019 10:50 PM CSTPt son is Ronni Azevedo is waiting outside with family and wishes to be called on disposition - #: [phone] signed by Rhys Willson, RN at 12/17/2019 10:51 PM CSTED Nurse Note - Beatris Lindsay RN - 12/17/2019 10:15 PM CSTPt pass code is "LOVE" documented in this encounter Plan of Treatment Name Type Priority Associated Diagnoses Date/Ti me CT ABDOMEN PELVIS W IMAGING STAT Epigastric pain 12/16 11:40 PM [employer] CONTRAST Name Type Priority Associated Diagnoses Order S chedule EKG-12 LEAD ROUTINE HEART STATION STAT Epigastric pain ONCE for 1 Occurrences ONCE starting 2019 until 0 Lactic Acid Whole LAB Routine Epigastric pain STAT fo r 1 Occurrences Blood starting 2019 Health Maintenance Due Date Last Done Comments DTaP,Tdap,and Td Vaccines (1 - Tdap) 12/20/1971 COLON CANCER SCREENING ANNUAL FIT/FOBT 2002 COLON CANCER SCREENING FIT DNA EVERY 3 YEARS 2002 COLON CANCER SCREENING SIGMOIDOSCOPY EVERY 5 YEARS 2002 Zoster Recombinant Vaccine (SHINGRIX) (1 of 2) 2002 Medicare Wellness Visit 2017 Osteoporosis Screening 2017 PNEUMOCOCCAL VACCINES 65+ (2 of 2 - PPSV23) 01/09/2019 12/06/2017 Breast Cancer Screening (MAMMOGRAM) 01/10/2019 01/10/2018 INFLUENZA VACCINE (#1) 2019 Depression Screening 08/14/2020 08/15/2019 COLONOSCOPY 04/30/2028 04/30/2018 Colorectal Cancer Screening 04/30/2028 HEPATITIS C (HCV) SCREEN Completed 01/21/2018 LUNG CANCER SCREEN: Recommended for age 55-80 with Discontinued 08/02/2018 30 + pack year history documented as of this encounter Implants Implanted Type Area Clean Out Driller Device Shelf Model / Identifier Expiration Serial / Date Lot Prolene Soft Polypropylene Mesh, Nonabso rbable Synthetic Surgical Mesh [id number] - Ssplmi MESH N/A: Ethicon 04/05/2023 SPMLI / Implanted: Qty: 1 on 10/02/2018 by Riley Manriquez MD at [facility] [employer] SPLMI / [id number] documented as of this encounter Procedures Procedure Name Priority Date/Time Associated Diagnosis Comme nts CT ABDOMEN PELVIS W STAT 12/17/2019 11:40 PM [employer] Epigastric pain CONTRAST Procedure Note - [facility], Radia nt Results Inft User - 12/17/2019 11:[address] [employer] [address] ABDOMEN PELVIS W CONTRAST HISTORY: 68 years-old; Femal e; Abd pain, acute, generalized COMPARISON: 02/28/2018 TECHNIQUE AND FINDINGS: Cont iguous axial imaging from the level of the lung bases through the pubic symp hysis was performed after the uncomplicated administration of 120 cc of intravenous Omnipaque contrast. Coronal and sagittal reconstructions wer e obtained. Auto mA and/or iterative reconstruction were used to reduce radiation dose. FINDINGS: LOWER THORAX: The lung bases are clear. No cardiomegaly. LIVER: No focal hepatic lesi ons. Normal contour. GALLBLADDER AND BILIARY TREE : A 3.0 cm stone is noted near the neck of the gallbladder with no wall thi ckening or pericholecystic fluid collection, unchanged from prior study. SPLEEN: Unremarkable. PANCREAS: No ductal dilation or masses. ADRENAL GLANDS: Right adrena l lesions measuring 1.7 cm in the medial limb and 1.5 cm in the lateral li mb, indeterminate and unchanged from prior study. The left adrenal glan d is unremarkable. KIDNEYS: Exophytic renal sim ple cyst measuring 1.3 cm along the posterior superior pole of left kidney . No hydronephrosis, stones, or masses. Homogeneous and symmetrical enhancement. PERITONEUM AND RETROPERITONE UM: No free air or fluid collection. LYMPH NODES: No intra-abdomi nal or pelvic lymph node enlargement. GI TRACT: No dilation or bow el wall thickening. Appendix is normal (2:96). A few sigmoid diverticula no chely with no CT evidence of diverticulitis. PELVIS/BLADDER: Bladder is d istended with no wall thickening. The uterus is absent. VESSELS: Unremarkable. BONES AND SOFT TISSUES: No s uspicious lytic or sclerotic bony lesions. Lines/Tubes/Devices/Hardware : None IMPRESSION No acute abdominopelvic CT f indings to account for patient's symptoms. Sigmoid diverticulosis witho ut diverticulitis. Cholelithiasis without CT ev idence of cholecystitis. Preliminary Report Dictated by Resident: Nell Bernabe US GALL BLADDER STAT 12/17/2019 10:45 PM Epigastric pain Re sults for this [employer] procedure are i n the results section. LACTIC ACID WHOLE STAT 12/17/2019 9:53 PM Epigastric pain Results for this BLOOD [employer] procedure are i n the results section. URINALYSIS STAT 12/17/2019 9:53 PM Epigastric pain Resul ts for this [employer] procedure are i n the results section. CBC WITH DIFF STAT 12/17/2019 9:53 PM Epigastric pain Resu lts for this [employer] procedure are i n the results section. BASIC METABOLIC PANEL STAT 12/17/2019 9:53 PM Epigastric p ain Results for this (NA, K, CL, CO2, [employer] procedure a re in GLUCOSE, BUN, the results CREATININE, CA) section. HEPATIC FUNCTION STAT 12/17/2019 9:53 PM Epigastric pain R esults for this PANEL ([id number]) [employer] procedure are in (ALB,T.PRO,BILI the results T,BU/BC,ALT,AST,ALK section. PHOS) TROPONIN I STAT 12/17/2019 9:53 PM Epigastric pain Resul ts for this [employer] procedure are i n the results section. LIPASE STAT 12/17/2019 9:53 PM Epigastric pain Resul ts for this [employer] procedure are i n the results section. NOTICE OF PRIVACY Routine 12/17/2019 9:23 PM PRACTICES [employer] CONSENT/REFUSAL FOR Routine 12/17/2019 9:22 PM DIAGNOSIS AND [employer] TREATMENT documented in this encounter Results US GALL BLADDER (12/17/2019 10:45 PM [employer]) Specimen Impressions Performed At PACS/VR/DOSE Cholelithiasis with no definite sonographic evidence o f cholecystitis. This finding is similar to that of previous abdominopelvic CT on February 2018. Preliminary Report Dictated by Resident: Nell Bernabe I, Dangelo Porras MD., have reviewed this study and agree with the above report. Narrative Performed At US GALL BLADDER PACS/VR/DOSE HISTORY: 68 years-old; Female; RUQ pain, concern for acute eliezer COMPARISON: Abdominopelvic CT 02/28/2018 FINDINGS: LIVER: The liver is normal in size and m easures 15.4 cm. Normal echotexture, echogenicity, and contour N o focal hepatic lesion. Hepatopetal flow within the main carolyn l vein. GALLBLADDER: A large stone is noted in t he neck of the gallbladder measuring approximately 3.0 cm with no w all thickening (0.2 cm), gallbladder distention, or pericholecystic fluid. Sono graphic Sanderson's sign cannot be reliably assessed due to administration of p ain medication. The common bile duct measures 0.5 cm. PANCREAS: Incompletely visualized due to overlying bowel gas. RIGHT KIDNEY: The partially visualized r ight kidney is unremarkable. Procedure Note [facility], Radiant Results Inft User - 2019 12:43 AM [employer] US GALL BLADDER HISTORY: 68 years-old; Female; RUQ pain, concern for acute eliezer COMPARISON: Abdominopelvic CT 02/28/2018 FINDINGS: LIVER: The liver is normal in size and m easures 15.4 cm. Normal echotexture, echogenicity, and contour N o focal hepatic lesion. Hepatopetal flow within the main portal vein. GALLBLADDER: A large stone is noted in t he neck of the gallbladder measuring approximately 3.0 cm with no w all thickening (0.2 cm), gallbladder distention, or pericholecyst ic fluid. Sonographic Sanderson's sign cannot be reliably assessed due to admin istration of pain medication. The common bile duct measures 0.5 cm. PANCREAS: Incompletely visualized due to overlying bowel gas. RIGHT KIDNEY: The partially visualized r ight kidney is unremarkable. IMPRESSION Cholelithiasis with no definite sonograp hic evidence of cholecystitis. This finding is similar to that of previous a bdominopelvic CT on February 2018. Preliminary Report Dictated by Resident: Nell Bernabe I, Dangelo Porras MD., have reviewed [facility] study and agree with the above report. Performing Organization Address City/State/Zipcode Phone Number PACS/VR/DOSE Lactic Acid Whole Blood (12/17/2019 9:53 PM [employer]) Pathologist Sig nature LACTIC ACID 1.60 mmol/L [facility] Specimen Blood - VENOUS Performing Organization Address City/State/[facility] Phone Number [facility] CLIA: [id number] [place] [address] [address] Troponin I (12/17/2019 9:53 PM [employer]) [facility] TROPONIN I <0.012 <=0.034 ng/mL [facility] Specimen Blood - VENOUS Narrative Performed At Equal or Less than 0.034 ng/ml---Normal [facility] Note: Cardiac troponin begins to rise 3-4 hours after the onset of ischemia. Repeat in 4-6 hours if the sample was drawn within 3-4 hours of the onset of the symptom and found normal. Between 0.035 and 0.120 ng/mL--- Borderline. Questionable myocardial injury or necros is Note: Serial measurement may be necessary to confirm or exclude the diagnosis of myocardial injury or necrosis; Clinical correlation (symptoms, EKGs, imaging studies, and others) required; Repeat in 4-6 hours if clinically indicated. Equal or Higher than 0.121 ng/mL---Abnormal. Myocardial Injury or Necrosis Likely Biotin has been reported to cause a negative bias, interpret results relative to patient's use of biotin. Performing Organization Address [facility] Phone Number [facility] CLIA: [id number] [place] [address] [place] [address] Lipase Serum (12/17/2019 9:53 PM [employer]) [facility] LIPASE 161 0 - 220 U/L [facility] Specimen Blood - VENOUS Performing Organization Address [facility] Phone Number [facility] CLIA: [id number] [place] [address] Hepatic Function Panel (ALB, T.PRO, BILI T, BU/BC, ALT, AST, ALK PHOS) (12/17/2019 9:53 PM [employer]) [facility] TOTAL BILI 0.8 0.1 - 1.1 mg/dL [facility] BILI UNCON 0.5 0.1 - 1.1 mg/dL [facility] BILI CONJ 0.0 0.0 - 0.3 mg/dL [facility] T PROTEIN 7.6 6.3 - 8.2 g/dL [facility] ALBUMIN 4.3 3.5 - 5.0 g/dL [facility] ALK PHOS 83 34 - 122 U/L [facility] ALTv 38 (H) 5 - 35 U/L [facility] AST(SGOT) 39 13 - 40 U/L [facility] Specimen Blood - VENOUS Performing Organization Address City/State/Zipcode Phone Number [facility] CLIA: [id number] [place] [address] Basic Metabolic Panel (NA, K, CL, CO2, GLUCOSE, BUN, CREATININE, CA) (12/17/2019 9:53 PM [employer]) [facility] NA 139 135 - 145 [facility] mmol/L [facility] K 3.2 (L) 3.5 - 5.0 [facility] mmol/L [facility] CL 99 98 - 108 mmol/L [facility] CO2 TOTAL 31 23 - 31 mmol/L [facility] AGAP 9 2 - 16 [facility] BUN 16 7 - 23 mg/dL [facility] GLUCOSE 113 (H) 70 - 110 mg/dL [facility] CREATININE 0.71 0.50 - 1.04 [facility] mg/dL [facility] CALCIUM 9.8 8.6 - 10.6 [facility] mg/dL [facility] eGFR Calculation 82.4 mL/min/1.73m2 [facility] (Non[facility] [place] [facility] [place]) eGFR Calculation 99.8 mL/min/1.73m2 [facility] () [facility] Specimen Blood - VENOUS Narrative Performed At Association of Glomerular Filtration Rate (GFR) [facility] and Staging of Kidney Disease* + + +- + | GFR (mL/min/1.73 m2) | With Kidney Damage | Without Kidney Damage + + +- + | >90 | Stage one | Normal + + +- + | 60-89 | Stage two | Decreased GFR + + +- + | 30-59 | Stage three | Stage three + + +- + | 15-29 | Stage four | Stage four + + +- + | <15 (or dialysis) | Stage five | Stage five + + +- + *Each stage assumes the associated GFR level has been in effect for at least three months. Stages 1 to 5, with or without kidney disease, indicate chronic kidney disease. Notes: Determination of stages one and two (with eGFR >59mL/min/1.73 m2) requires estimation of kidney damage for at least three months as defined by structural or functional abnormalities of the kidney, manifested by either: Pathological abnormalities or Markers of kidney damage (including abnormalities in the composition of the blood or urine or abnormalities in imaging tests). Performing Organization Address City/State/Zipcode Phone Number [facility] CLIA: [id number] [place] [address] CBC with Differential (12/17/2019 9:53 PM [employer]) Pathologist Sig nature WBC 11.26 (H) 4.30 - 11.10 [facility] 10*3/L [facility] RBC 4.69 3.93 - 5.25 [facility] 10*6/L [facility] HGB 14.0 11.6 - 15.0 [facility] g/dL [facility] HCT 41.7 35.7 - 45.2 % [facility] MCV 88.9 80.6 - 95.5 fL [facility] MCH 29.9 25.9 - 32.8 pg [facility] MCHC 33.6 31.6 - 35.1 [facility] g/dL [facility] RDW-SD 41.4 39.0 - 49.9 fL [facility] RDW-CV 12.7 12.0 - 15.5 % [facility] PLT 279 166 - 358 [facility] 10*3/L [facility] MPV 11.2 9.5 - 12.9 fL [facility] NRBC/100 WBC 0.0 0.0 - 10.0 /100 [facility] WBCs [facility] NRBC x10^3 <0.01 10*3/L [facility] GRAN MAT (NEUT) % 49.3 % [facility] IMM GRAN % 1.00 % [facility] LYMPH % 41.0 % [facility] MONO % 6.3 % [facility] EOS % 1.6 % [facility] BASO % 0.8 % [facility] GRAN MAT x10^3(ANC) 5.55 1.88 - 7.09 [facility] 10*3/uL [facility]OSPITAL [facility] IMM GRAN x10^3 0.11 (H) 0.00 - 0.06 [facility] 10*3/uL [facility] LYMPH x10^3 4.62 (H) 1.32 - 3.29 [facility] 10*3/uL [facility] MONO x10^3 0.71 0.33 - 0.92 [facility] 10*3/uL [facility]ITAL [facility] EOS x10^3 0.18 0.03 - 0.39 [facility] 10*3/uL [facility] BASO x10^3 0.09 (H) 0.01 - 0.07 [facility] 10*3/uL [facility] REACT LYMPHS Rare [facility] Specimen Blood - VENOUS Performing Organization Address [facility] [place] Phone Number [facility] CLIA: [id number] [place] [address] Urinalysis (12/17/2019 9:53 PM [employer]) Pathologist Sig nature APPEARANCE Clear Clear [facility] COLOR Yellow Yellow [facility] PH 8.0 4.8 - 8.0 [facility] SP GRAVITY 1.016 1.003 - 1.030 [facility] GLU U QUAL Normal Normal [facility] BLOOD Negative Negative [facility] KETONES Negative Negative [facility] PROTEIN Negative Negative [facility] UROBILIN 4.0 mg/dL (A) Normal [facility] BILIRUBIN Negative Negative [facility] NITRITE Negative Negative [facility] LEUK ROBERTA Negative Negative [facility] RBC/HPF <1 0 - 3 HPF [facility] WBC/HPF 1 0 - 5 HPF [facility] BACTERIA Negative Negative [facility] MUCOUS Slight (A) Negative LPF [facility] SQ EPITH 2 HPF [facility] Specimen Urine - URINE, CLEAN CATCH Performing Organization Address [facility] Phone Number [facility] CLIA: [id number] [place] [address] documented in this encounter Visit Diagnoses Diagnosis Epigastric pain - Primary Abdominal pain, epigastric Biliary colic Calculus of gallbladder without mention of cholecystitis or obstruction documented in this encounter Administered Medications Medication Order MAR Action Action Date Dose Rate Site iohexol (OMNIPAQUE 350 BULK-150 Given 12/17/2019 11:45 PM [employer] 12 0 mL mL) injection 120 mL 120 mL, Intravenous, ONCE, 1 dose, Sun12/17/19 at 2345, Routine morpHINE injection 4 mg Given 12/17/2019 10:01 PM [employer] 4 mg 4 mg, Slow IV Push, ONCE, 1 dose, Sun12/17/19 at 2300, STAT ondansetron (ZOFRAN (PF)) injection 4 mg Given 12/17/2019 10:02 PM [employer] 4 mg 4 mg, Slow IV Push, ONCE, 1 dose, Sun12/17/19 at 2300, CLARK documented in this encounter Additional Health Concerns Infection Onset Date Last Indicated Resolved Time Contact - ESBL 09/15/2018 09/15/2018 documented as of this encounter Insurance Payer Benefit Plan / Subscriber ID Effective Phone Address T e [employer] [facility] [id number] 2018-Pres [facility] - HEALTHCARE ent Adv HM O MANAGED DUAL COMPLETE MEDICARE HMO [facility] MEDICAID OF [id number] 2017-Pre [phone] [facility] sent [phone] [place] [address] documented as of this encounter
--- OUTSIDE RECORDS SUMMARY | 2020-01-05 11:00 | XMS REPORT | Summary of Care ---
:1950 Author Organization [facility] - [facility] Address [address] [place] [address] Care Team Providers Name Role Phone José Armstrong MD Primary Care Provider Reason for Referral Radiology Services (Routine) Status Reason Specialty Diagnoses / Referred By Referred To Procedures Contact Contact New Request Diagnostic Diagnoses Encounter for screening mammogram for breast cancer Nathaniel, Radiology Procedures BI SCREENING MAMMOGRAM BILATERAL Krysta Kumar MD [address] [place] [address] [address] [place] [address] (CLARK) Status Reason Specialty Diagnoses / Referred By Referred To Procedures Contact Contact Open Patient Requested Surgery Diagnoses Gallstones Sharon Armstrong James Specific Provider Procedures CONSULT/REFERRAL GENERAL SURGERY Krysta Kumar MD P, [address] [place] [address] Dr 104 [facility] [address] [place] [id number] Phone: Reason for Visit Reason Comments Follow-up Encounter Details Date Type Department Care Team Description 12/22/2019 Office Visit [facility] Pediatric Jared Armstrong (Primary Dx); and Adult Primary Shayna Pitts Teeth problem; Care- [address] Hyperthyroidism; [address] [place] [address] 103 Encounter for screening mammogram for br [facility] cancer [facility], [address] [place] [address] [place], [place] [phone] [address] [phone] Allergies No Known Allergiesdocumented as of this encounter (statuses as of 12/28/2019) Medications Medication Sig Dispensed Refills Start End Date Status Date lisinopril 20 mg Take 1 tablet 90 tablet 3 Active tabletIndications: by mouth 0 Uncontrolled daily. hypertension amLODIPine 10 mg Take 1 tablet 90 tablet 3 Active tabletIndications: by mouth 0 Uncontrolled daily. hypertension acetaminophen-codein Take 1 tablet 30 tablet 0 Active e (TYLENOL-CODEINE by mouth 0 #3) 300-30 mg every 4 tabletIndications: (four) hours acute pain as needed for Pain (scale 1-3). Indications: acute pain amoxicillin 500 mg 0 A ctive capsule 0 ibuprofen 800 mg 0 Act christin tablet 0 methIMAzole 10 mg Take 1 tablet 90 tablet 1 Active tabletIndications: by mouth 3 0 Hyperthyroidism (three) times daily. albuterol 2.5 mg /3 Inhale 3 mL 120 Vial 11 12/22/19 Discontinued mL (0.083 %) every 6 (six) 8 20 (Th erapy nebulizer hours as completed) solutionIndications: needed for Shortness of breath Wheezing or Shortness of Breath. albuterol 90 Inhale 2 8.5 g 12/22/19 Discont inued mcg/actuation Puffs every 6 8 20 (T herapy inhalerIndications: (six) hours completed) Shortness of breath as needed for Wheezing or Shortness of Breath. ibuprofen 600 mg Take 1 tablet 30 tablet 0 12/22/19 Discontinued tabletIndications: by mouth 9 20 ( Alternate Pelvic organ every 6 (six) the rapy) prolapse hours as quantification stage needed for 2 cystocele Pain (scale 4-6). traMADol 50 mg Take 1 tablet 20 tablet 0 12/22/19 D iscontinued tabletIndications: by mouth 9 20 ( Therapy Pelvic organ every 6 (six) com pleted) prolapse hours as quantification stage needed for 2 cystocele Pain (scale 7-10). omeprazole 20 mg TAKE 1 30 capsule 5 12/22/19 Di scontinued capsule CAPSULE BY 9 20 (Therapy MOUTH ONCE completed ) DAILY doxycycline hyclate Take 1 tablet 20 tablet 0 Discontinued 100 mg by mouth 2 0 20 (Therapy tabletIndications: (two) times completed) Cellulitis of right daily. lower extremity FUROSEMIDE 20 mg Take 1 tablet 30 tablet 0 12/22/19 Discontinued tabletIndications: by mouth once 0 20 (Therapy Edema, lower daily complet ed) extremity METHIMAZOLE 10 mg TAKE 1 TABLET 90 tablet 0 12/22/19 Discontinued tabletIndications: BY MOUTH 0 20 ( Reorder) Hyperthyroidism THREE TIMES DAILY documented as of this encounter (statuses as of 12/28/2019) Active Problems Problem Noted Date Hyperthyroidism 12/28/2019 Cellulitis of right lower extremity 08/15/2019 Edema, lower extremity 08/15/2019 S/P hysterectomy 10/02/2018 Mixed stress and urge urinary incontinence 08/22/2018 Overview: Added automatically from request for ruth wisam [id number] Uterovaginal prolapse, complete 08/22/2018 Overview: Added automatically from request for ruth wisam [id number] Helicobacter pylori (H. pylori) infection 07/25/2018 Obesity (BMI 30-39.9) 07/17/2018 Atrophy of vagina 06/27/2018 Mammogram abnormal 06/27/2018 Overview: Cat 3 Calculus of gallbladder without cholecystitis without obstruction 03/21/2018 Diverticulosis of large intestine without hemorrhage 0 03/21/2018 Family history of stomach cancer 03/21/2018 Colon cancer screening 03/21/2018 Overview: Added automatically from request for ruth wisam [id number] Pelvic organ prolapse quantification stage 3 rectocele 01/16/2018 Pelvic organ prolapse quantification stage 2 cystocele 01/16/2018 Thyroid nodule Stroke Overview: due to stress per pt, had at 34 years ol d Recurrent UTI Overview: prolapsed bladder Uncontrolled hypertension Hearing loss GERD (gastroesophageal reflux disease) documented as of this encounter (statuses as of 12/28/2019) Resolved Problems Problem Noted Date Resolved Date Hypothyroidism (acquired) 12/28/2019 documented as of this encounter (statuses as of 12/28/2019) Immunizations Name Administration Dates Next Due Pneumococcal [...] month, have you been in contact with No / Unsure 12/22/2019 2:28 PM FLOATING LABOR GANG SUPERVISOR someone who was confirmed or suspected to have Coronavirus / COVID-19? documented as of this encounter Last Filed Vital Signs Vital Sign Reading Time Taken Comments Blood Pressure 128/84 12/22/2019 2:38 PM FLOATING LABOR GANG SUPERVISOR Pulse 68 12/22/2019 2:38 PM FLOATING LABOR GANG SUPERVISOR Temperature - - Respiratory Rate 18 12/22/2019 2:38 PM FLOATING LABOR GANG SUPERVISOR Oxygen Saturation 98% 12/22/2019 2:38 PM FLOATING LABOR GANG SUPERVISOR Inhaled Oxygen Concentration - - Weight 111.9 kg (246 lb 11.2 oz) 12/22/2019 2:38 PM FLOATING LABOR GANG SUPERVISOR Height - - Body Mass Index 38.64 12/17/2019 9:30 PM FLOATING LABOR GANG SUPERVISOR documented in this encounter Progress Notes Krysta Armstrong MD - 12/22/2019 2:00 PM CST DOS: 12/22/2019 CC: Follow up of chronic conditions HPI: Beata Azevedo is a 69 year old female with history including has a past medical history of DVT (deep venous thrombosis), GERD (gastroesophageal reflux disease), Hearing loss, HTN (hypertension), benign, Hypothyroidism (acquired), Recurrent UTI, Stroke, and Thyroid nodule. who is being seen today for follow up of chronic conditions. Patient was in the ER on 12/17/19 for abd pain, ultrasound showed gallbladder stones and they recommend follow up with general surgery. She states she still has abd pain but it's not as bad because she's been taking the pain meds given to her. She's been eating chicken noodle soup and plain baked potato. Patient states she tested positive for covid on December 04. She is doing well now. She states she added Liquid IV to her water to help her stay hydrated which helped. Patient states she recently had a tooth pulled and she needs to go back to have another one pulled. She is following with dental. Health Maintenance Patient states her breast has been bothering her and she would like to get a mammogram. With every thing going on it is not a good idea for her to get vaccines right now, will discuss vaccines again atfuture visit. Medications reviewed in EPIC, past medical history and social history and allergies reviewed. Review of Systems HENT: Positive for dental problem. Respiratory: Negative for shortness of breath. Cardiovascular: Negative for chest pain. Gastrointestinal: Positive for abdominal pain. PE: Blood pressure 128/84, pulse 68, resp. rate 18, weight 246 lb 11.2 oz (111.9 kg), SpO2 98 %. Physical Exam Vitals signs reviewed. Constitutional: General: She is not in acute distress. Appearance: She is well-developed. She is not diaphoretic. HENT: Head: Normocephalic and atraumatic. Right Ear: External ear normal. Left Ear: External ear normal. Nose: Nose normal. Eyes: General: No scleral icterus. Right eye: No discharge. Left eye: No discharge. Comments: Left and right eyelids normal. Skin: General: Skin is warm and dry. Neurological: Mental Status: She is alert and oriented to person, place, and time. Comments: No tremors. Normal gait. Psychiatric: Behavior: Behavior normal. Comments: Pleasant. Results: No new labs A/P: Beata Azevedo is a 69 year old female with history including has a past medical history of DVT (deep venous thrombosis), GERD (gastroesophageal reflux disease), Hearing loss, HTN (hypertension), benign, Hypothyroidism (acquired), Recurrent UTI, Stroke, and Thyroid nodule. who is being seentoday for chronic medical conditions. Gallstones (primary encounter diagnosis) Comment: still has pain. She needs to see general surgery, referral sent. Plan: CONSULT/REFERRAL GENERAL SURGERY Teeth problem Comment: she recently had a tooth pulled. She is following with dental. Plan: continue following with dental. Hyperthyroidism Comment: stable. needs refill. Plan: methIMAzole 10 mg tablet Encounter for screening mammogram for breast cancer Comment: patient is due for mammogram Plan: BI SCREENING MAMMOGRAM BILATERAL Return for schedule appt sometime in the Spring for f/u chornic conditions. Plan of care, desired health behaviors, goals,& medication discussed with patient and educational resources and self management tools provided as appropriate. Patient/family/guardian voices understanding. Patient verbalized understanding & agrees to plan of care. Barriers to care: none Ability to manage care: good Scribe's Attestation I, Natividad Robb , am scribing for, and in the presence of, Krysta Armstrong MD who performed the services described here-in. Natividad Robb, December 22, 2019, 2:43 PM Physician's Attestation I, Krysta Armstrong MD, personally performed the services described in this documentation , asscribed by, Natividad Robb in my presence and it is both accurate and complete. Krysta Armstrong MD December 28, 2019, 7:00 PM TING LABOR GANG SUPERVISOR documented in this encounter Plan of Treatment Date Type Specialty Care Team Description 01/15/2020 Appointment Radiology Yajaira Armstrong MD [address] [place] [address] 77 [phone] 05/18/2020 Office Visit Internal Medicine Jenniffer Armstrong MD [address] [place] [address] [phone] 05/25/2020 Office Visit Internal Medicine Jenniffer Armstrong MD [address] [place] [address] [phone] Name Type Priority Associated Diagnoses Order S chedule BI SCREENING MAMMOGRAM IMAGING Routine Encounter for scre ening Expected: 12/22/2019, BILATERAL mammogram for breast Expires : 02/20/2021 cancer Health Maintenance Due Date Last Done Comments COLON CANCER SCREENING ANNUAL 2002 FIT/FOBT COLON CANCER SCREENING FIT DNA 2002 EVERY 3 YEARS COLON CANCER SCREENING 2002 SIGMOIDOSCOPY EVERY 5 YEARS Medicare Wellness Visit 2017 PNEUMOCOCCAL VACCINES 65+ (2 of 2 01/09/2019 01/09/2018 - PPSV23) Breast Cancer Screening 01/10/2019 01/10/2018 (MAMMOGRAM) INFLUENZA VACCINE (#1) 2019 Osteoporosis Screening 02/09/2020 Postponed from 2017 (Patient Does No t Have Time) Depression Screening 08/14/2020 08/15/2019 DTaP,Tdap,and Td Vaccines (1 - 12/21/2020 P ostponed from 12/20/1971 Tdap) (Insurance / Fin ancial) Zoster Recombinant Vaccine 12/21/2020 Postp oned from 2002 (SHINGRIX) (1 of 2) (Insurance / Financial) COLONOSCOPY 04/30/2028 04/30/2018 Colorectal Cancer Screening 04/30/2028 HEPATITIS C (HCV) SCREEN Completed 01/21/2018 LUNG CANCER SCREEN: Recommended Discontinued 08/02/2018 for age 55-80 with 30 + pack year history documented as of this encounter Implants Implanted Type Area Patient Appointment Coordinator Device Shelf Model / Identifier Expiration Serial / Date Lot Prolene Soft Polypropylene Mesh, Nonabso rbable Synthetic Surgical Mesh [id number] - Ssplmi MESH N/A: Ethicon 04/05/2023 SPMLI / Implanted: Qty: 1 on 10/02/2018 by Riley Manriquez MD at [facility] [employer] SPLMI / [id number] documented as of this encounter Results Not on filedocumented in this encounter Visit Diagnoses Diagnosis Gallstones - Primary Calculus of gallbladder without mention of cholecystitis or obstruction Teeth problem Unspecified disorder of the teeth and guerrier pporting structures Hyperthyroidism Thyrotoxicosis without mention of goiter or other cause, without mention of thyrotoxic crisis or storm Encounter for screening mammogram for br east cancer documented in this encounter Insurance Payer Benefit Plan / Subscriber ID Effective Phone Address T ype Group Dates [facility] [id number] 2018-Pres [facility] - HEALTHCARE ent Adv HM O MANAGED DUAL COMPLETE MEDICARE HMO [facility] MEDICAID OF [id number] 2017-Pre [phone] Medi caid [place] sent [phone] [place] [address] documented as of this encounter
--- OUTSIDE RECORDS SUMMARY | 2020-01-05 11:01 | XMS REPORT | Summary of Care ---
:1950 Author Organization [facility] - [facility] Address [address] [place] [address] Care Team Providers Name Role Phone José Armstrong MD Primary Care Provider Reason for Referral Radiology Services (Routine) Status Reason Specialty Diagnoses / Referred By Referred To Procedures Contact Contact New Request Diagnostic Diagnoses Encounter for screening mammogram for breast cancer Nathaniel, Radiology Procedures BI SCREENING MAMMOGRAM BILATERAL Krysta Kumar MD [address] [place] [address] [address] [place] [address] (CLARK) Status Reason Specialty Diagnoses / Referred By Referred To Procedures Contact Contact Open Patient Requested Surgery Diagnoses Gallstones Sharon Armstrong James Specific Provider Procedures CONSULT/REFERRAL GENERAL SURGERY Krysta Kumar MD P, [address] [place] [address] Dr 104 [facility] [address] [place] [address] Phone: Reason for Visit Reason Comments Follow-up Encounter Details Date Type Department Care Team Description 12/22/2019 Office Visit [facility] Pediatric Jared Armstrong (Primary Dx); and Adult Primary Shayna Pitts Teeth problem; Care- [address] Hyperthyroidism; [address] [place] [address] 103 Encounter for screening mammogram for br [facility] cancer [facility], [address] [place] [address] [place], [place] [phone] [address] [phone] Allergies No Known Allergiesdocumented as of this [...] Added automatically from request for ruth wisam [id number] Uterovaginal prolapse, complete 08/22/2018 Overview: Added automatically from request for ruth wisam [id number] Helicobacter pylori (H. pylori) infection 07/25/2018 Obesity (BMI 30-39.9) 07/17/2018 Atrophy of vagina 06/27/2018 Mammogram abnormal 06/27/2018 Overview: Cat 3 Calculus of gallbladder without cholecystitis without obstruction 03/21/2018 Diverticulosis of large intestine without hemorrhage 0 03/21/2018 Family history of stomach cancer 03/21/2018 Colon cancer screening 03/21/2018 Overview: Added automatically from request for ruth wisam [id number] Pelvic organ prolapse quantification stage 3 rectocele [...] with No / Unsure 12/22/2019 2:28 PM SOCIAL WORK PROGRAM COORDINATOR someone who was confirmed or suspected to have Coronavirus / COVID-19? documented as of this encounter Last Filed Vital Signs Vital Sign Reading Time Taken Comments Blood Pressure 128/84 12/22/2019 2:38 PM SOCIAL WORK PROGRAM COORDINATOR Pulse 68 12/22/2019 2:38 PM SOCIAL WORK PROGRAM COORDINATOR Temperature - - Respiratory Rate 18 12/22/2019 2:38 PM SOCIAL WORK PROGRAM COORDINATOR Oxygen Saturation 98% 12/22/2019 2:38 PM SOCIAL WORK PROGRAM COORDINATOR Inhaled Oxygen Concentration - - Weight 111.9 kg (246 lb 11.2 oz) 12/22/2019 2:38 PM SOCIAL WORK PROGRAM COORDINATOR Height - - Body Mass Index 38.64 12/17/2019 9:30 PM SOCIAL WORK PROGRAM COORDINATOR documented in this encounter Progress Notes Krysta [...] Armstrong MD December 28, 2019, 7:00 PM AL WORK PROGRAM COORDINATOR documented in this encounter Plan of Treatment Date Type Specialty Care Team Description 01/15/2020 Appointment Radiology Yajaira Armstrong MD [address] [place] [address] 77 15 05/18/2020 Office Visit Internal Medicine Jenniffer Armstrong MD [address] [place] [address] 775 15 05/25/2020 Office Visit Internal Medicine Jenniffer Armstrong MD [address] [place] [address] [phone] Name Type Priority Associated Diagnoses [...] of this encounter Implants Implanted Type Area Mosaic Layer Device Shelf Model / Identifier Expiration Serial / Date Lot Prolene Soft Polypropylene Mesh, Nonabso rbable Synthetic Surgical Mesh [id number] - Ssplmi MESH N/A: Ethicon 04/05/2023 SPMLI / Implanted: Qty: 1 on 10/02/2018 by Riley Manriquez MD at [facility] [employer] SPLMI / [id number] documented as of this encounter Results Not [...] Effective Phone Address T ype Group Dates [facility] [id number] 2018-Pres [facility] - HEALTHCARE ent Adv HM O MANAGED DUAL COMPLETE MEDICARE HMO [facility] MEDICAID OF [id number] 2017-Pre [phone] [address] Medi caid [place] sent [phone] [place] [address] documented as of this encounter
[2020-01-05] MEDS ORDERED: KETOROLAC 30 MG/ML INJ ONE (11:02)
--- NOTE | 2020-01-05 11:33 | P.HP ---
Date of Service: 01/05/20 PC: This 69-year-old female presents for laparoscopic possible open cholecystectomy with cholangiogram. HPC: Patient has been experiencing right upper quadrant abdominal pain, had ones very severe bout, was found have cholecystitis with biliary colic. PMH: Hypertension PSHx: Previous hysterectomy, tubal ligation SOC: No known allergies SYS REVIEW: No cough, wheeze, shortness of breath. No chest pain or palpitations. Denies any urinary complaints. No intestinal complaints. However has been having this pain off and on for the last few years. Just had been feeling unwell. However the attacks have become more frequent and more severe. O/E awake alert comfortable HEENT: Not jaundice Chest: Chest movement equal bilaterally ABD: Soft nontender LOCO: Intact DATA: Documented gallstones IMPRESSION: Cholelithiasis with biliary colic PLAN: I will to that in for laparoscopic possible open cholecystectomy with cholangiogram. The risks of this procedure have been discussed. The possibility of bleeding, infection, injury to bile ducts blood vessels intestines has been described. The possible need for an open and/or further surgeries and procedures was discussed. She understands and wants to proceed.
[2020-01-05] MEDS ORDERED: NS 0.9% VIAL 10 ML ONE (12:08)
[2020-01-05] MEDS ORDERED: EPHEDRINE SULF 50 MG/ML VIAL ONE (12:08)
--- NOTE | 2020-01-05 12:51 | P.OP ---
Preoperative diagnosis: Cholecystitis with cholelithiasis, biliary colic Postoperative diagnosis: The same Primary procedure: Laparoscopic cholecystectomy Secondary procedure: Cholangiogram Other procedure(s): ROSA block Anesthesia: General Estimated blood loss: Less than 10 Specimen: 1 gallbladder and contents Operative Technique: The patient was brought to the operating room placed supine on the table. After the induction of adequate general endotracheal anesthesia, the area of the abdomen was prepped with a DuraPrep solution, and draped in the usual aseptic manner. A subumbilical incision was made. This brought down through the skin and subcutaneous tissue. The Visiport was used to enter the peritoneal cavity and created pneumoperitoneum to approximately 12 mm of mercury. Under direct vision a 5 mm trocar was placed in the upper midline, and 2 other 5 mm trocars on the right lateral side. The patient's head was then elevated and rolled towards the radio board operator announcer's side. We could see[a distended gallbladder with omental adhesions. These were taken down using blunt sharp dissection. The upper portion of the gallbladder, having been cleared, allowed us to start placing graspers. A grasper was placed on the fundus of the gallbladder. Another 1 was placed down by Colette's pouch. Applying lateral traction we were able to dissect and ex pose the cystic duct and artery. The artery was dealt with 1st. It was clipped and divided in the usual manner. A clip was then placed between the gallbladder and the cystic duct. An opening was made into the cystic duct. We attempted then to pass the cholangiocath into the cystic duct.[having done so we were able to obtain a cholangiogram. The cholangiogram demonstrated good flow contrast throughout the extrahepatic biliary tree. The cystic duct was observed. The common bile duct and hepatic duct were all noted to be clear as well. We had good flow contrast into the duodenum. No evidence of any stones or filling defects. The catheter was now withdrawn. Clips were now placed on the distal portion of the cystic duct. The cystic duct was then divided. The gallbladder was now dissected free from the liver bed, placed into an Endo- Catch, and brought out through the umbilical trocar site. The gallbladder fossa was inspected to ensure adequate hemostasis. It was irrigated with a saline solution and the irrigant aspirated from the peritoneal cavity. 0.25% Marcaine was aerosolized into the right upper quadrant and the gallbladder fossa. The umbilical trocar site was now approximated with an Endo Close and an absorbable sutures. The pneumoperitoneum was then collapsed, the suture tied, and jason applied to the skin. A further 0.25% Marcaine was injected around are incision sites. We were also able to form and ROSA block. 0.80 cc were injected after visualizing from the peritoneal cavity. At the end of the procedure the patient was in a stable condition when sent to the recovery room. Needle sponge instrument count were correct. 1 specimen was sent for histopathology. Complications: None Transferred to: Recovery Room Condition: Good
[2020-01-05] MEDS ORDERED: GLYCOPYRROLATE 0.2 MG/ML SYR ONE ×2 (12:54)
[2020-01-05] MEDS ORDERED: NEOSTIGMINE 1 MG/ML -5 ML ONE (12:55)
[2020-01-05] MEDS ORDERED: ONDANSETRON 4 MG/2 ML VIAL IV PRN (13:08)
[2020-01-05] MEDS: Ringers Lactate 1,000 ML IV SCH ×2 (13:08→21:20)
[2020-01-05] MEDS ORDERED: MORPHINE 4 MG/ML SYR IV PRN (13:08)
[2020-01-05] MEDS ORDERED: HYDROCODONE/APAP 7.5/325 MG TAB PO PRN (13:08)
--- NOTE | 2020-01-05 13:19 | RAD REPORT ---
EXAM DESCRIPTION: RAD - Cholangiogram Oper-Xray Or - 01/05/2020 1:15 pm FINDINGS: There were 5 portable C-arm views obtained during fluoroscopic assisted intraoperative cho langiogram. No suspicious or unexpected finding. Evaluation is limited when only selected images are available. Fluoro time was 0.2 minutes. Cumulative dose was 7.04 mGy.
[2020-01-05] MEDS: HYDROMORPHONE HCL 1 MG/ML INJ ONE ×2 (13:20→13:29)
[2020-01-05 13:35] VITALS: O2SAT 98
[2020-01-05 15:10] VITALS: BMI 38.3
[2020-01-05] MEDS ORDERED: PNEUMOCOCCAL VACCINE 0.5 ML IMVAC ONE (16:00)
[2020-01-06] MEDS: Ringers Lactate 1,000 ML IV SCH (05:17)
[2020-01-06] MEDS ORDERED: AMLODIPINE 10 MG TAB PO SCH (09:00)
[2020-01-06] MEDS ORDERED: lisinopriL 20 MG TAB PO SCH (09:00)
--- NOTE | 2020-01-06 13:14 | P.DS ---
Admission Date: 01/05/20 Discharge Date: 01/06/20 Disposition: ROUTINE DISCHARGE Discharge Condition: GOOD Reason for Admission: Acute postoperative abdominal pain Procedures: Laparoscopic cholecystectomy will with cholangiogram and a Amrit block Brief History of Present Illness: This patient has been having right upper quadrant abdominal pain radiating to her back. She presented for elective laparoscopic cholecystectomy with cholangiogram. Hospital Course: The patient underwent her elective procedure. She was admitted for observation for acute postoperative abdominal pain. Today she is up ambulating, tolerating a diet, her vital signs are stable. Her pain is controlled on oral medications. She is deemed fit for discharge. Vital Signs/Physical Exam: Temp Pulse Resp BP Pulse Ox 98.3 F 58 17 119/60 94 01/06/20 08:00 01/06/20 08:45 01/06/20 08:00 01/06/20 08:45 01/06/20 08:00 Laboratory Data at Discharge: WBC 8.0 K/uL (4.3-10.9) 12/30/19 13:55 Hgb 14.2 g/dL (12.0-15.0) 12/30/19 13:55 Hct 42.4 % (36.0-45.0) 12/30/19 13:55 Plt Count 259 K/uL (152-406) 12/30/19 13:55 Imagings Data: Normal cholangiogram Home Medications: Amlodipine [Norvasc] 10 mg PO DAILY 12/30/19 Lisinopril [Zestril] 20 mg PO DAILY 12/30/19 Methimazole [Tapazole] 20 mg PO DAILY 12/30/19 Patient Discharge Instructions: Ambulated home, continue incentive spirometry. You may shower. Diet as tolerated. Milk of magnesia p.r.n.. Pain medicine as described. See me next week in my office, call for an appointment. Any questions or problems, go to the emergency room, or contact me. Diet: Regular Activity: Ad micaela
[2020-01-06 18:46] VITALS: BP 147/80; TEMP 97.1
== END 2020-01-06 16:20 | disposition home or self-care (01) ==
LOC: OR 09:48 → 2ND 13:14
PROVIDERS: ADMIT Surgery; ATTEND Surgery
PROC: BF131ZZ Fluoroscopy of Gallbladder and Bile Ducts using Low Osmolar Contrast (ICD-10-PCS; 2020-01-05)
PROC: 0FT44ZZ Resection of Gallbladder, Percutaneous Endoscopic Approach (ICD-10-PCS; principal; 2020-01-05 11:00)
DX: K80.10 Calculus of gallbladder with chronic cholecystitis without obstruction (principal); Z20.828 Contact with and (suspected) exposure to other viral communicable diseases; I10 Essential (primary) hypertension
CPT/HCPCS: 93005 ×2; 85025; 36415; 88304; 74300; 94010; 47563; U0002; J2704; J2250; J3010; J1100; J1170; J2710; J7120 ×4; J2405 ×2; G0378

== ENCOUNTER 2021-05-19 16:12 | Emergency (ER) | payer OTHER ==
--- OUTSIDE RECORDS SUMMARY | 2021-05-19 16:15 | XMS REPORT | Continuity of Care Document ---
:1950 Author Organization [facility] t Address [address] [place] [address] Care Team Providers Name Role Phone José ARMSTRONG Primary Care Physician Unavailable MAYO, A Attending Clinician Unavailable Mayo SCHMIDT, A Attending Clinician Payers Payer Name Policy Type Policy Number Effective Date Expiration Date Catarino nicole [facility] DUAL [id number] 2020 COMP HMO D SNP 00:00:00 [place]ICAID OF [place] [id number] 2017 00:00:00 Problems Condition Condition Condition Status Onset Resolution Last Treating Co mments Source Name Details Category Date Date Treatment Clinician Date Bradycardi Bradycardi Disease Active U teresa a a 3-17 ity of 00:00: [address] Branch Senile Senile Disease Active Univers osteoporos osteoporos 3-17 it y of is is 00:00: [place] [address] Medical Branch Hyperthyro Hyperthyro Disease Active 2019- U teresa idism idism 1-22 ity of 00:00: [place] [address] Medical Branch Edema, Edema, Disease Active 2020- Univers lower lower 7-10 [place] of extremity extremity [place] S/P S/P Disease Active 2019- Univers hysterecto hysterecto 8-28 it y of my my 00:00: [place] [address] Medical Branch Mixed Mixed Disease Active 2019 Overview: Univer s stress and stress and 08-22 Formattin ity of urge urge 00:00: g of this [place] urinary urinary 00 note Medical incontinen incontinen might be Branch ce ce different from the original. Added automatic ally from request for surgery [id number] Uterovagin Uterovagin Disease Active Overview : Univers al al 18 Formattin ity of prolapse, prolapse, 00:00: [place] of [place] complete complete 00 note Medica l might be Branch different from the original. Added automatic ally from request for surgery [id number] Helicobact Helicobact Disease Active U nivers er pylori er pylori 6-20 ity of (H. (H. 00:00: [place] pylori) pylori) 00 Medical infection infection Bran ch Obesity Obesity Disease Active Univers (BMI (BMI 6-12 ity of 30-39.9) 30-39.9) 00:00: [place] 00 Medical Branch Atrophy of Atrophy of Disease Active U nivers vagina vagina 5-23 ity of 00:00: [place] 00 Medical Branch Mammogram Mammogram Disease Active Overview: Univers abnormal abnormal -23 Formattin ity of 00:00: g of this [place] 00 note Medical might be Branch different from the original. Cat 3 Diverticul Diverticul Disease Active U nivers osis of osis of 2-14 ity of large large 00:00: [place] intestine intestine 00 Medi shiva without without Branch hemorrhage hemorrhage Family Family Disease Active Univers history of history of 2-14 it y of stomach stomach 00:00: [place] cancer cancer 00 Medical Branch Calculus Calculus Disease Active Unive rs of of 2-14 ity of gallbladde gallbladde 00:[place] without r without 00 Medi shiva cholecysti cholecysti Br anch tis tis without without obstructio obstructio n n Pelvic Pelvic Disease Active 2017-02 Univers organ organ 2-12 ity of prolapse prolapse 00:00: [place] quantifica quantifica 00 Me dical tion stage tion stage Br anch 3 3 rectocele rectocele Pelvic Pelvic Disease Active 2017-02 Univers organ organ 2-12 ity of prolapse prolapse 00:00: [place] quantifica quantifica 00 Me dical tion stage tion stage Br anch 2 2 cystocele cystocele Thyroid Thyroid Disease Active Univers nodule nodule ity of [facility] Stroke Stroke Disease Active Overview: Univer s Formattin ity of g of this [place] note Medical might be Branch different from the original. due to stress per pt, had at 34 years old Recurrent Recurrent Disease Active Overview: Univers UTI UTI Formattin ity of g of this [place] note Medical might be Branch different from the original. prolapsed bladder Hypothyroi Hypothyroi Disease Active U nivers dism dism ity of (acquired) (acquired) [place] [facility] [place] Hearing Hearing Disease Active Univers loss loss ity of [facility] GERD GERD Disease Active Univers (gastroeso (gastroeso it y of phageal phageal [place] reflux reflux Medical disease) disease) Branch Uncontroll Uncontroll Disease Active U nivers ed ed ity of hypertensi hypertensi [place] Allergies, Adverse Reactions, Alerts Allergy Allergy Status Severity Reaction(s) Onset Inactive Treating Comm ents Source Name Type Date Date Clinician NO KNOWN Drug Active Univers ALLERGIE Class ity of S [facility] Social History Social Habit Start Date Stop Date Quantity Comments Source History of Cigarette Smoker Universi ty of tobacco use [facility] Exposure to Not sure [facility] SARS-CoV-2 [place] Medical (event) Branch Alcohol intake 2020-12-06 2020-12-06 Current [place] of 00:00:00 00:00:00 non-drinker of [place] [facility] alcohol (finding) Branch Tobacco Comment 2018-09-12 2018-09-12 vapes- contains Univ ersity of 00:00:00 00:00:00 no nicotine (only [facility] every once & a Branch while) Tobacco use and 2018-09-12 2018-09-12 Never used Universit y of exposure 00:00:00 00:00:00 [facility] Sex [birth year] Universit y of 00:00:00 00:00:00 [facility] Smoking Status Start Date Stop Date Source Former smoker 2018-09-12 00:00:00 2018-09-12 00:00:[address] [facility] Medications Ordered Filled Start Stop Current Ordering Indication Dosage Frequency Signature Comments Components Source Medication Medication Date Date Medication? Clinician (SIG) Name Name METHIMAZOLE Yes [id number] TAKE 1 Univers 10 mg 1-05 TABLET BY ity of tablet 00:00: MOUTH [place] 00 THREE Medical TIMES Branch DAILY METHIMAZOLE 2-0 Yes [id number] TAKE 1 Univers 10 mg 1-05 TABLET BY ity of tablet 00:00: MOUTH [place] 00 THREE Medical TIMES Branch DAILY METHIMAZOLE 2-0 Yes [id number] TAKE 1 Univers 10 mg 1-05 TABLET BY ity of tablet 00:00: MOUTH [place] 00 THREE Medical TIMES Branch DAILY lisinopriL 1-0 Yes 20mg Take 1 Unive rs 20 mg 7-09 tablet by ity of tablet 00:00: mouth [place] 00 daily. Medical Branch amLODIPine 2020-0 Yes 10mg Take 1 Unive rs 10 mg 7-09 tablet by ity of tablet 00:00: mouth [place] 00 daily. Medical Branch methIMAzole 2020-0 Yes [id number] 10mg Take 1 Univers 10 mg 7-09 tablet by ity of tablet 00:00: mouth 3 [place] 00 (three) Medical times Branch daily. lisinopriL 1-0 Yes 20mg Take 1 Unive rs 20 mg 7-09 tablet by ity of tablet 00:00: mouth [place] 00 daily. Medical Branch amLODIPine 2020-0 Yes 10mg Take 1 Unive rs 10 mg 7-09 tablet by ity of tablet 00:00: mouth [place] 00 daily. Medical Branch lisinopriL 1-0 Yes 20mg Take 1 Unive rs 20 mg 7-09 tablet by ity of tablet 00:00: mouth [place] 00 daily. Medical Branch amLODIPine 1-0 Yes 10mg Take 1 Unive rs 10 mg 7-09 tablet by ity of tablet 00:00: mouth [place] 00 daily. Medical Branch lisinopriL 1-0 Yes 20mg Take 1 Unive rs 20 mg 7-09 tablet by ity of tablet 00:00: mouth [place] 00 daily. Medical Branch amLODIPine 1-0 Yes 10mg Take 1 Unive rs 10 mg 7-09 tablet by ity of tablet 00:00: mouth [place] 00 daily. Medical Branch methIMAzole 2021-0 2- No [id number] 10mg Take 1 Univers 10 mg 7-09 01-05 tablet by ity of tablet 00:00: 00:00 mouth 3 [place] 00 :00 (three) Medical times Branch daily. Immunizations Ordered Filled Immunization Date Status Comments [facility] e Immunization Name Name SARS-COV-2 COVID-19 2020-12-06 Completed Unive rsity of PFIZER VACCINE 00:00:00 [facility] SARS-COV-2 COVID-19 2020-12-06 Completed Unive rsity of PFIZER VACCINE 00:00:00 [facility] SARS-COV-2 COVID-19 2020-12-06 Completed Unive rsity of PFIZER VACCINE 00:00:00 [facility] SARS-COV-2 COVID-19 2020-12-06 Completed Unive rsity of PFIZER VACCINE 00:00:00 [facility] SARS-COV-2 COVID-19 2020-05-13 Completed Unive rsity of PFIZER VACCINE 00:00:00 [facility] SARS-COV-2 COVID-19 2020-05-13 Completed Unive rsity of PFIZER VACCINE 00:00:00 [facility] SARS-COV-2 COVID-19 2020-05-13 Completed Unive rsity of PFIZER VACCINE 00:00:00 [facility] SARS-COV-2 COVID-19 2020-05-13 Completed Unive rsity of PFIZER VACCINE 00:00:00 [facility] SARS-COV-2 COVID-19 2020-04-22 Completed Unive rsity of PFIZER VACCINE 00:00:00 [facility] SARS-COV-2 COVID-19 2020-04-22 Completed Unive rsity of PFIZER VACCINE 00:00:00 [facility] SARS-COV-2 COVID-19 2020-04-22 Completed Unive rsity of PFIZER VACCINE 00:00:00 [facility] SARS-COV-2 COVID-19 2020-04-22 Completed Unive rsity of PFIZER VACCINE 00:00:00 [place] [facility] Branch Pneumococcal 13 2018-01-09 Completed Universit y of Conjugate, PCV13 00:00:00 [facility] dical (Prevnar 13) Branch Pneumococcal 13 2018-01-09 Completed Universit y of Conjugate, PCV13 00:00:00 [facility] dical (Prevnar 13) Branch Pneumococcal 13 2018-01-09 Completed Universit y of Conjugate, PCV13 00:00:00 [facility] dical (Prevnar 13) Branch Pneumococcal 13 2018-01-09 Completed Universit y of Conjugate, PCV13 00:00:00 [facility] dical (Prevnar 13) [place] Vital Signs Vital Name Observation Time Observation Value Comments Source Systolic blood 2020-12-06 19:01:00 137 mm[Hg] Univer sity of pressure [facility] Diastolic blood 2020-12-06 19:01:00 82 mm[Hg] Unive rsity of pressure [facility] Heart rate 2020-12-06 19:01:00 61 /min [facility] Body temperature 2020-12-06 19:01:00 36.5 [place] [facility] Respiratory rate 2020-12-06 19:01:00 18 /min [facility] Body height 2020-12-06 19:01:00 170.2 cm [facility] Body weight 2020-12-06 19:01:00 110.043 kg [facility] BMI 2020-12-06 19:01:00 38.00 kg/m2 [facility] Oxygen saturation in 2020-12-06 19:01:00 96 /min [facility] blood by [place] [facility] Pulse oximetry Branch Procedures This patient has no known procedures. Encounters Start End Encounter Admission Attending Care Care Encounter Source Date/Time Date/Time Type Type Clinicians Facility Department ID 2021-08-09 2021-08-09 Outpatient Collin ARMSTRONG [facility] [id number] 22P-[id number] [place] [facility] 15:00:00 15:00:00 KRYSTA [id number] [facility] 2021-07-08 2021-07-08 Outpatient Collin ARMSTRONG [facility] [id number] 22P-[id number] Univers 00:00:00 00:00:00 KRYSTA [id number] [facility] 2021-04-11 2021-04-11 Outpatient Collin ARMSTRONG [facility] [id number] Univers 14:00:00 14:00:00 KRYSTA [facility] 2021-03-15 2021-03-15 [facility] [id number] Univers 00:00:00 00:00:00 Krysta SAM [id number] melony de la cruz [place] [id number] [id number] Nh dicrosa [facility] 044 [facility] 2021-02-18 2021-02-18 [facility] [id number] Univers 00:00:00 00:00:00 Krysta José [place] [id number] ity of [facility] [id number] [phone] N[address] 2021-02-09 2021-02-09 [facility] [id number] Univers 00:00:00 00:00:00 Krysta A [place] [id number] ity [place] [id number] [phone] [address] 2021-01-31 2021-01-31 [facility] [id number] 22P-20 Univers 00:00:00 00:00:00 KRYSTA [id number] [facility] 2021-01-31 2021-01-31 [facility] [id number] Univers 00:00:00 00:00:00 KRYSTA [facility] 2020-12-06 2020-12-[address] [facility] [id number] [place] [facility] 13:46:28 15:29:23 Visit Krysta SAM [id number] ity [facility] [id number] [id number] [address] 2019-12-22 2019-12-[address] [facility] [id number] 14:29:04 15:05:25 Visit Krysta [place] [id number] [place] [id number] Professio [phone] [address] Results This patient has no known results.
[2021-05-19] MEDS ORDERED: ONDANSETRON 4 MG/2 ML VIAL ONE ×2 (18:53→21:34)
[2021-05-19] MEDS ORDERED: FAMOTIDINE 20 MG/2 ML VIAL IV ONE (18:53)
[2021-05-19] MEDS ORDERED: NA CHLORIDE 0.9% 1,000 ML ONE (18:53)
[2021-05-19 19:11] LABS: Absolute Lymphocytes (CBC) 0.5 K/uL (0.7-4.9); Hematocrit 41.8 % (36.0-45.0); Lymphocytes % 11.4 % (15.3-44.8); MPV 9.5 fL (7.6-11.3); RBC Red Blood Cell Count 4.74 M/uL (3.86-4.86)
[2021-05-19 19:21] LABS: Albumin 3.5 g/dL (3.4-5.0); Potassium 3.1 mmol/L (3.5-5.1)
[2021-05-19 19:26] LABS: Bilirubin Total 0.3 mg/dL (0.2-1.0); Protein, Total 7.3 g/dL (6.4-8.2)
--- NOTE | 2021-05-19 19:35 | RAD REPORT ---
EXAM DESCRIPTION: John Hartley (2 Views)05/19/2021 7:27 pm CLINICAL HISTORY: Cough COMPARISON: 2012 FINDINGS: The lungs appear clear of acute infiltrate. The heart is normal size IMPRESSION: No acute abnormalities displayed
[2021-05-19] MEDS ORDERED: NA CHLORIDE 0.9% 0 ML ONE (20:00)
[2021-05-19] MEDS ORDERED: ACETAMINOPHEN 500 MG TAB ONE (20:04)
[2021-05-19] MEDS ORDERED: IBUPROFEN 400 MG TAB ONE (20:04)
[2021-05-19 21:46] LABS: SARS-COV-2 RT PCR NEGATIVE (NEGATIVE)
[2021-05-19 22:06] LABS: Urine Blood Trace-intact (Negative); Urine Glucose Negative (Negative); Urine Protein Negative (Negative); Urine Specific Gravity 1.015 (1.005-1.030)
[2021-05-19 22:53] LABS: Urine Bacteria 20-50 /HPF (<20); Urine RBC <5 /HPF (NONE SEEN)
--- NOTE | 2021-05-19 23:27 | EDPHYS ---
Physician Documentation [facility] Name: Beata Azevedo Age: 70 yrs Sex: Female : 1950 Arrival Date: 05/19/2021 Time: 16:16 Bed 18 Private MD: ED Physician Mukesh Erickson HPI: 05/19 18:45 This 70 yrs old Female presents to ER via Wheelchair with complaints of cp Shortness Of Breath. 18:45 The patient has shortness of breath with light activity. Onset: The symptoms/episode cp began/occurred 3 day(s) ago. Duration: The symptoms are intermittent. Associated signs and symptoms: Pertinent positives: non-productive cough, nausea, vomiting, diarrhea, general weakness. Severity of symptoms: in the emergency department the symptoms are unchanged despite home interventions. Historical: - Allergies: 16:26 No Known Allergies; ll1 - PMHx: 16:26 Hypertensive disorder; Chronic obstructive lung disease; COPD; stroke; ll1 - PSHx: 16:26 legs stripped; Cholecystectomy; ll1 - Immunization history:: Client reports receiving the 2nd dose of the Covid vaccine. - Social history:: Smoking status: Patient denies any tobacco usage or history of. ROS: 18:50 Constitutional: Positive for body aches, fatigue, fever, poor PO intake. cp 18:50 Eyes: Negative for injury, pain, redness, and discharge. cp 18:50 Cardiovascular: Negative for chest pain, edema, palpitations. 18:50 Respiratory: Positive for cough, shortness of breath, at rest. Negative for wheezing. 18:50 Abdomen/GI: Positive for abdominal pain, nausea, vomiting, and diarrhea, Negative for constipation, hematemesis, black/tarry stool, rectal bleeding. 18:50 : Negative for burning with urination. 18:50 Neuro: Positive for headache, general weakness, Negative for altered mental status. 18:50 All other systems are negative. Exam: 18:55 Constitutional: The patient appears in no acute distress, alert, awake, cp non-diaphoretic, non-toxic, well developed, well nourished, obese. 18:55 Head/Face: Normocephalic, atraumatic. cp 18:55 Eyes: Periorbital structures: appear normal, Pupils: equal, round, and reactive to light and accomodation, Extraocular movements: intact throughout, Conjunctiva: normal, no exudate, no injection, Sclera: no appreciated abnormality, Lids and lashes: appear normal, bilaterally. 18:55 ENT: External ear(s): are unremarkable, Nose: is normal, Mouth: Lips: dry, Oral mucosa: dry, Posterior pharynx: Airway: no evidence of obstruction, patent, Tonsils: are normal in appearance, swelling, is not appreciated, erythema, that is mild. 18:55 Neck: ROM/movement: is normal, is supple, no range of motions limitations, no meningismus, no nuchal rigidity. 18:55 Chest/axilla: Inspection: normal. 18:55 Cardiovascular: Rate: normal, Rhythm: regular, Edema: is not appreciated, JVD: is not appreciated. 18:55 Respiratory: the patient does not display signs of respiratory distress, Respirations: normal, no use of accessory muscles, no retractions, labored breathing, is not present, Breath sounds: bronchial sounds, that are mild, are heard diffusely, stridor, is not appreciated, + upper airway congestion. wheezing: is not appreciated. 18:55 Abdomen/GI: Inspection: abdomen appears normal, Bowel sounds: active, all quadrants, Palpation: soft, in all quadrants, mild abdominal tenderness, in the right lower quadrant and left lower quadrant, rebound tenderness, is not appreciated, involuntary guarding, is not appreciated. 18:55 Back: CVA tenderness, is absent. 18:55 Skin: cellulitis, is not appreciated, no rash present. 18:55 Neuro: Orientation: to person, place \T\ time. Mentation: is normal, Motor: moves all fours, general weakness with no focal deficits, Sensation: is normal. Vital Signs: 16:23 BP 139 / 73; Pulse 78; Resp 18; Temp 100.9; Pulse Ox 97% ; Weight 108.86 kg; Height 5 ll1 ft. 7 in. (170.18 cm); Pain 10/10; 21:40 BP 111 / 55; Pulse 60; Pulse Ox 91% on R/A; kd3 22:59 BP 101 / 89; Pulse 62; Resp 19; Temp 98.2; Pulse Ox 93% on R/A; kd3 15 00:19 BP 103 / 72; Pulse 64; Resp 17; Pulse Ox 92% on R/A; kd3 05/19 16:23 Body Mass Index 37.59 (108.86 kg, 170.18 cm) ll1 MDM: 05/19 17:55 Patient medically screened. [facility] 23:25 Data reviewed: vital signs, nurses notes, lab test result(s), radiologic studies, CT cp scan, plain films. 23:25 Test interpretation: by ED physician or midlevel provider: plain radiologic studies. cp Counseling: I had a detailed discussion with the patient and/or guardian regarding: the historical points, exam findings, and any diagnostic results supporting the discharge/admit diagnosis, lab results, radiology results, to return to the emergency department if symptoms worsen or persist or if there are any questions or concerns that arise at home. 05/19 18:40 Order name: CBC with Diff; Complete Time: 22:24 05/19 18:40 Order name: CMP; Complete Time: 19:38 05/19 19:39 Interpretation: Normal except: K 3.1; GFR 73; AST 10; GLOB 3.8; A/G 0.9. 05/19 18:40 Order name: Lipase; Complete Time: 19:38 cp 05/19 18:40 Order name: Urine Microscopic Only; Complete Time: 22:58 05/19 22:58 Interpretation: Normal except: UWBC 5-10; UBACT 20-50; SQEPI 5-10. 05/19 18:43 Order name: CBC with Automated Diff; Complete Time: 19:38 EDMS 05/19 18:40 Order name: XRAY Chest Pa And Lat (2 Views); Complete Time: 19:38 05/19 21:25 Order name: CT Abd/Pelvis - IV Contrast Only 05/19 22:07 Order name: Urine Dipstick-Ancillary; Complete Time: 22:24 EDIN 05/19 22:55 Order name: Urine Culture EDIN 05/19 18:40 Order name: IV Saline Lock; Complete Time: 19:04 05/19 18:40 Order name: Labs collected and sent; Complete Time: 19:04 05/19 23:24 Order name: PO challenge; Complete Time: 00:15 cp Administered Medications: 19:02 Drug: Pepcid (famotidine) 20 mg Route: IVP; Site: right antecubital; cui 19:03 Follow up: Response: No adverse reaction cui 19:02 Drug: Zofran (Ondansetron) 4 mg Route: IVP; Site: right antecubital; cui 19:02 Drug: NS 0.9% 500 ml Route: IV; Rate: bolus; Site: right antecubital; cui 19:02 Drug: NS 0.9% 500 ml Route: IV; Rate: 125 ml/hr; Site: right antecubital; cui 20:04 Drug: Tylenol 1000 mg Route: PO; kd3 20:04 Drug: Ibuprofen 800 mg Route: PO; kd3 05/20 00:20 Follow up: Response: Pain is decreased kd3 05/19 21:05 Drug: Potassium Effervescent Tablet 50 mEq Route: PO; kd3 05/20 00:20 Follow up: Response: No adverse reaction kd3 05/19 21:33 Drug: Zofran (Ondansetron) 4 mg Route: IVP; Site: right antecubital; kd3 05/20 00:20 Follow up: Response: No adverse reaction kd3 00:15 Drug: Rocephin - (cefTRIAXone) 1 grams Route: IVPB; Infused Over: 30 mins; Site: right kd3 antecubital; 00:15 Follow up: Response: No adverse reaction; IV Status: Completed infusion kd3 00:20 Follow up: Response: No adverse reaction; IV Status: Completed infusion kd3 00:15 Drug: Phenergan (promethazine) 12.5 mg Route: IVP; Site: right antecubital; kd3 00:19 Follow up: Response: Nausea is decreased; Other kd3 Disposition Summary: 05/19/21 23:27 Discharge Ordered Location: Home cp Problem: new cp Symptoms: have improved cp Condition: Stable cp Diagnosis - UTI/ Urinary tract infection, site not specified cp - Influenza due to other identified influenza virus with gastrointestinal cp manifestations - Diarrhea, unspecified cp - Nausea with vomiting, unspecified cp Followup: cp - With: Private Physician - When: 2 - 3 days - Reason: Recheck today's complaints Discharge Instructions: - Discharge Summary Sheet cp - Food Choices to Help Relieve Diarrhea, Adult cp - Diarrhea, Adult cp - Nausea and Vomiting, Adult cp - Urinary Tract Infection, Adult cp Forms: - Medication Reconciliation Form cp - Thank You Letter cp - Antibiotic Education cp - Prescription Opioid Use cp Prescriptions: - Ibuprofen 800 mg Oral Tablet - take 1 tablet by ORAL route every 8 hours As needed take with food; 30 tablet; cp Refills: 0, Product Selection Permitted - Zofran 4 mg Oral Tablet - take 1 tablet by ORAL route every 12 hours As needed; 20 tablet; Refills: 0, cp Product Selection Permitted - Bactrim DS 800-160 mg Oral Tablet - take 1 tablet by ORAL route every 12 hours for 7 days; 14 tablet; Refills: 0, cp Product Selection Permitted - Tamiflu 75 mg Oral Capsule - take 1 tablet by ORAL route every 12 hours for 5 days; 10 tablet; Refills: 0, cp Product Selection Permitted Signatures: Dispatcher [employer] EDMS Mukesh Erickson MD MD cha Attema, Lee, WELF[employer] CENTRE MANAGER-C WELF[employer] CENTRE MANAGER-Cla1 Mukesh Devine PA PA cp Lewis, Lynsay, RN RN ll1 Halima Cordova RN RN kd3 Cristiane Cherry RN RN cui
--- NOTE | 2021-05-19 23:27 | ER ---
Nurse's Notes [facility] Name: Beata Azevedo Age: 70 yrs Sex: Female : 1950 Arrival Date: 05/19/2021 Time: 16:16 Bed 18 Private MD: Diagnosis: UTI/ Urinary tract infection, site not specified;Influenza due to other identified influenza virus with gastrointestinal manifestations;Diarrhea, unspecified;Nausea with vomiting, unspecified Presentation: 05/19 16:23 Chief complaint: Patient states: Cough/congestion, fatigue, weak, N/V/D since Sunday. ll1 Coronavirus screen: Vaccine status: Patient reports receiving the 2nd dose of the covid vaccine. Client denies travel out of the [place] in the last 14 days. congestion, cough unrelated to allergies, fatigue, fever, headache, muscle pain, nausea, vomiting. Client presents with at least one sign or symptom that may indicate coronavirus-19. Standard/surgical mask placed on the client. Ebola Screen: Patient denies travel to an Ebola-affected area in the 21 days before illness onset. Initial Sepsis Screen: Does the patient meet any 2 criteria? No. Patient's initial sepsis screen is negative. Does the patient have a suspected source of infection? No. Patient's initial sepsis screen is negative. Risk Assessment: Do you want to hurt yourself or someone else? Patient reports no desire to harm self or others. Onset of symptoms was May 16, 2021. 16:23 Method Of Arrival: Wheelchair ll1 16:23 Acuity: MAC 3 ll1 Triage Assessment: 16:27 General: Appears ill, Behavior is cooperative, appropriate for age. Pain: Complains of ll1 pain in body Quality of pain is described as aching. Respiratory: Reports shortness of breath cough that is Onset: The symptoms/episode began/occurred Sunday, the patient has mild shortness of breath. GI: Reports diarrhea, nausea, vomiting. Historical: - Allergies: 16:26 No Known Allergies; ll1 - PMHx: 16:26 Hypertensive disorder; Chronic obstructive lung disease; COPD; stroke; ll1 - PSHx: 16:26 legs stripped; Cholecystectomy; ll1 - Immunization history:: Client reports receiving the 2nd dose of the Covid vaccine. - Social history:: Smoking status: Patient denies any tobacco usage or history of. Screenin:45 Abuse screen: Denies threats or abuse. Denies injuries from another. Nutritional cui screening: On. Tuberculosis screening: No symptoms or risk factors identified. Fall Risk IV access (20 points). Assessment: 18:45 General: Appears in no apparent distress. Behavior is calm, cooperative. cui Cardiovascular: Rhythm is regular. Respiratory: Reports shortness of breath on exertion Airway is patent Respiratory effort is even, unlabored, Breath sounds are clear Breath sounds are diminished bilaterally. GI: Reports diarrhea, nausea, vomiting. Vital Signs: 16:23 BP 139 / 73; Pulse 78; Resp 18; Temp 100.9; Pulse Ox 97% ; Weight 108.86 kg; Height 5 ll1 ft. 7 in. (170.18 cm); Pain 10/10; 21:40 BP 111 / 55; Pulse 60; Pulse Ox 91% on R/A; kd3 22:59 BP 101 / 89; Pulse 62; Resp 19; Temp 98.2; Pulse Ox 93% on R/A; kd3 05/20 00:19 BP 103 / 72; Pulse 64; Resp 17; Pulse Ox 92% on R/A; kd3 05/19 16:23 Body Mass Index 37.59 (108.86 kg, 170.18 cm) ll1 ED Course: 05/19 16:16 Patient arrived in ED. ds1 16:26 Triage completed. ll1 16:28 Arm band placed on. ll1 17:47 Patient placed in an exam room, on a stretcher. ll1 17:49 Mukesh Devine PA is PHCP. cp 17:49 Mukesh Erickson MD is Attending Physician. cp 18:43 Cristiane Cherry, RN is Primary Nurse. cui 18:46 Patient has correct armband on for positive identification. Bed in low position. cui 18:46 No provider procedures requiring assistance completed. cui 19:28 XRAY Chest Pa And Lat (2 Views) In Process Unspecified. EDMS 21:49 Primary Nurse role handed off by Cristiane Cherry, RN cs9 22:14 CT Abd/Pelvis - IV Contrast Only In Process Unspecified. EDMS 22:59 Halima Cordova, MEENAKSHI is Primary Nurse. kd3 05/20 00:19 IV discontinued, intact, bleeding controlled, No redness/swelling at site. Pressure kd3 dressing applied. Administered Medications: 05/19 19:02 Drug: Pepcid (famotidine) 20 mg Route: IVP; Site: right antecubital; cui 19:03 Follow up: Response: No adverse reaction cui 19:02 Drug: Zofran (Ondansetron) 4 mg Route: IVP; Site: right antecubital; cui 19:02 Drug: NS 0.9% 500 ml Route: IV; Rate: bolus; Site: right antecubital; cui 19:02 Drug: NS 0.9% 500 ml Route: IV; Rate: 125 ml/hr; Site: right antecubital; cui 20:04 Drug: Tylenol 1000 mg Route: PO; kd3 20:04 Drug: Ibuprofen 800 mg Route: PO; kd3 05/20 00:20 Follow up: Response: Pain is decreased kd3 05/19 21:05 Drug: Potassium Effervescent Tablet 50 mEq Route: PO; kd3 05/20 00:20 Follow up: Response: No adverse reaction kd3 05/19 21:33 Drug: Zofran (Ondansetron) 4 mg Route: IVP; Site: right antecubital; kd3 05/20 00:20 Follow up: Response: No adverse reaction kd3 00:15 Drug: Rocephin - (cefTRIAXone) 1 grams Route: IVPB; Infused Over: 30 mins; Site: right kd3 antecubital; 00:15 Follow up: Response: No adverse reaction; IV Status: Completed infusion kd3 00:20 Follow up: Response: No adverse reaction; IV Status: Completed infusion kd3 00:15 Drug: Phenergan (promethazine) 12.5 mg Route: IVP; Site: right antecubital; kd3 00:19 Follow up: Response: Nausea is decreased; Other kd3 Outcome: 05/19 23:27 Discharge ordered by MD. siddiqui 05/20 00:18 Discharged to home via wheelchair. kd3 Condition: stable Discharge instructions given to patient, family, Instructed on discharge instructions, follow up and referral plans. Demonstrated understanding of instructions, follow-up care, medications, Prescriptions given X 4. 00:25 Patient left the ED. kd3 Signatures: Dispatcher [employer] EDNE Alana Jose ds1 Mukesh Devine PA PA Behzad Fleming RN RN ll1 Rima Devlin cs9 Halima Cordova, RN RN kd3 TamannaCristiane Campos RN RN cui
[2021-05-20 08:17] VITALS: TEMP 98.2
[2021-05-20 08:18] VITALS: BP 103/72; O2SAT 92
--- NOTE | 2021-05-20 12:10 | RAD REPORT ---
EXAM DESCRIPTION: CT - Abdomen Pelvis W Contrast - 05/20/2021 6:48 am CLINICAL HISTORY: 70 years Female Abdominal pain, acute, nonlocalized TECHNIQUE: Contiguous axial images obtained through the abdomen and pelvis following intravenous con trast administration. Coronal and sagittal reformatted images provided. This CT exam was performed according to our departmental dose-optimization program, which includes on e or more of the following dose reduction techniques: automated exposure control, adjustment of the m A and/or kV according to patient size, and/or use of iterative reconstruction technique. COMPARISON: No prior exams provided for comparison. FINDINGS: The appendix is normal. There is no bowel inflammation, obstruction, free intraperitoneal air, or ascites. Scattered sigmoid diverticuli without diverticulitis. Prior cholecystectomy without biliary dilatation. Nonspecific right adrenal nodules demonstrate enhancement on delayed images. Small left renal cyst. The lung bases, liver, pancreas, spleen, left adrenal gland, and right kidney are normal. Mild thickening of the urinary bladder. Prior hysterectomy. Atherosclerosis without abdominal aortic aneurysm or retroperitoneal hemorrhage. Chronic degenerative changes in the spine and both hips. IMPRESSION: Possible cystitis, correlate with urinalysis. No other acute findings in the abdomen or pelvis. Normal appendix. Nonspecific right adrenal nodules can be further evaluated with MRI. Electronically signed by: Danisha West MD 05/19/2021 10:47 PM CDT Due to temporary technical issues with the PACS/Fluency reporting system, reports are being signed by the in house radiologist without review as a courtesy to ensure prompt reporting. The interpreting r adiologist is fully responsible for the content of the report.
== END 2021-05-20 00:25 | disposition home or self-care (01) ==
LOC: ER 16:12
DX: J10.2 Influenza due to other identified influenza virus with gastrointestinal manifestations (principal); N39.0 Urinary tract infection, site not specified; R19.7 Diarrhea, unspecified; R11.2 Nausea with vomiting, unspecified; Z20.822 Contact with and (suspected) exposure to COVID-19; J44.9 Chronic obstructive pulmonary disease, unspecified; I10 Essential (primary) hypertension
CPT/HCPCS: 87088; 85025; 87086; 36415; 83690; 80053; 0240U; 74177; 71046; 96375; 96374; 99283; Q9967; J7030; J2405 ×2; 81003; 81015; J7050